=== PATIENT | female | born 1950 | race Two or more races ===

== ENCOUNTER 2017-08-20 13:01 | Inpatient (IN) | payer MEDICARE, OTHER ==
[~2017-08-20] VITALS: Ht 157.5 cm; Wt 61.2 kg
[~2017-08-20 13:01] MED LIST: BENAZEPRIL HCL10 MG PO; GLIPIZIDE5 MG PO; GLUCOPHAGE500 MG PO; GLUCOPHAGE850 MG ORAL; IBUPROFEN600 MG PO; LEVEMIR FL100 UNIT/1 SUBQ; LIPITOR20 MG ORAL; NKM; NORCO 5-325 TA1 EACH PO; ZOCOR20 MG PO
[2017-08-20] MEDS ORDERED: GABAPENTIN100 MG ORAL (13:13)
[2017-08-20] MEDS ORDERED: VENTOLIN HFA18 GM INH (13:13)
[2017-08-20 13:15] VITALS: BP 111/65
[2017-08-20] MEDS ORDERED: Aspirin Baby 81mg ORAL ONE (13:30)
[2017-08-20 13:54] LABS: BASOPHILS % (AUTO) 1.2 % (0.0-2.0); LYMPHOCYTES % (AUTO) 23.6 % (20.0-45.0); MEAN CORPUSCULAR HEMOGLOBIN 32.3 PG (27.0-31.0); MEAN CORPUSCULAR HGB CONC 34.9 G/DL (32.0-36.0); MEAN CORPUSCULAR VOLUME 93 FL (80-99); MEAN PLATELET VOLUME 6.5 FL (6.5-10.1); NEUTROPHILS % (AUTO) 66.2 % (45.0-75.0); PLATELET COUNT 234 K/UL (150-450); RED BLOOD COUNT 4.07 M/UL (4.20-5.40); RED CELL DISTRIBUTION WIDTH 12.2 % (11.6-14.8); WHITE BLOOD COUNT 8.3 K/UL (4.8-10.8)
[2017-08-20 13:59] LABS: PROTHROMBIN TIME 10.2 SEC (9.30-11.50)
[2017-08-20 14:21] LABS: ALANINE AMINOTRANSFERASE 18 U/L (12-78); ALBUMIN/GLOBULIN RATIO 0.9 (1.0-2.7); ANION GAP 8 mmol/L (5-15); ASPARTATE AMINO TRANSFERASE 12 U/L (15-37); CALCIUM 8.7 MG/DL (8.5-10.1); CARBON DIOXIDE 27 MMOL/L (21-32); CHLORIDE 107 MMOL/L (98-107); CKMB 0.8 NG/ML (0.0-3.6); CREATININE 0.6 MG/DL (0.55-1.30); GLOMERULAR FILTRATION RATE > 60 mL/min (>60); LIPASE 151 U/L (73-393); POTASSIUM 3.6 MMOL/L (3.5-5.1); SODIUM 142 MMOL/L (136-145); TOTAL PROTEIN 6.6 G/DL (6.4-8.2)
--- NOTE | 2017-08-20 14:21 | Diagnostic Imaging Report ---
Indication: Chest pain Technique: One view of the chest Comparison: 08/10/2015 Findings: Lungs and pleural spaces are clear. Heart size is normal. No significant interim change Impression: No acute process
[2017-08-20 14:29] LABS: KETONES,URINE NEGATIVE (NEGATIVE); LEUKOCYTE ESTERASE ,URINE 1+ (NEGATIVE); NITRITE,URINE NEGATIVE (NEGATIVE); PH,URINE 5 (4.5-8.0); PROTEIN,URINE NEGATIVE (NEGATIVE); UROBILINOGEN,URINE NORMAL MG/DL (0.0-1.0)
[2017-08-20 14:33] LABS: APPEARANCE,URINE SLIGHTLY CLOUDY
[2017-08-20 14:39] LABS: BACTERIA,URINE FEW /HPF; RBC,URINE 0-2 /HPF (0 - 2); SQUAMOUS EPITHELIAL CELL,UR FEW /LPF (NONE/OCC)
[2017-08-20] MEDS ORDERED: Ketorolac 30mg Inj IV PRN (14:45)
[2017-08-20] MEDS ORDERED: Nitroglycerin Subl 0.4mg tab SL PRN (14:45)
[2017-08-20] MEDS ORDERED: Miralax 17gm pkt ORAL PRN (14:45)
[2017-08-20] MEDS ORDERED: Albuterol/Ipratropium 3ml neb HHN PRN (14:45)
[2017-08-20] MEDS ORDERED: Enalaprilat 2.5mg/2ml Inj IV PRN (14:45)
[2017-08-20 16:09] VITALS: BP 142/75
[2017-08-20] MEDS ORDERED: Morphine Sulfate 2mg/ml Inj IVP ONE (16:30)
--- NOTE | 2017-08-20 16:45 | Emergency Room Report ---
History of Present Illness General Chief Complaint: Chest Pain Source: Patient Present Illness HPI The patient complains about feeling terrible. She states that her entire body hurts. She is also having chest pain. She feels generalized weakness. She denies cough or congestion. She denies abdominal pain. She denies dysuria or hematuria. She has no other complaints. Allergies: Coded Allergies: CODEINE (Unverified Allergy, Unknown, 07/07/14) Pt claims that she used to be allergic to Codeine, but she is now able to take it without any side effect or adverse reaction DIPHENHYDRAMINE (Unverified Allergy, Unknown, 07/07/14) Patient History Past Medical History: see triage record, HTN, other - breast ca, scoliosis, DJD Social History: Denies: smoking, alcohol use, drug use Reviewed Nursing Documentation: PMH: Agreed, PSxH: Agreed Nursing Documentation-PMH Hx Cardiac Problems: Yes Hx Hypertension: Yes - scoliosis Hx Asthma: Yes Hx Diabetes: Yes Hx Cancer: No - + family history Hx Gastrointestinal Problems: Yes Hx Neurological Problems: Yes Hx Peripheral Neuropathy: Yes Review of Systems All Other Systems: negative except mentioned in HPI Physical Exam Vital Signs Date Time Temp Pulse Resp B/P (MAP) Pulse Ox O2 Delivery O2 Flow Rate FiO2 08/20/17 13:05 98.2 76 20 150/66 96 Room Air Sp02 EP Interpretation: reviewed, normal General Appearance: no apparent distress, alert, GCS 15, non-toxic Head: normocephalic, atraumatic Eyes: bilateral eye normal inspection, bilateral eye PERRL ENT: hearing grossly normal, normal pharynx, no angioedema, normal voice Neck: full range of motion, supple/symm/no masses Respiratory: chest non-tender, lungs clear, normal breath sounds, speaking full sentences Cardiovascular #1: regular rate, rhythm, no edema Gastrointestinal: normal bowel sounds, non tender, soft, non-distended, no guarding, no rebound Rectal: deferred Genitourinary: normal inspection, no CVA tenderness Musculoskeletal: back normal, gait/station normal, normal range of motion, non- tender Neurologic: alert, oriented x3, responsive, motor strength/tone normal, sensory intact, speech normal Psychiatric: judgement/insight normal, memory normal, mood/affect normal, no suicidal/homicidal ideation Skin: normal color, no rash, warm/dry, well hydrated Medical Decision Making Diagnostic Impression: Primary Impression: Chest pain ER Course This patient presents with chest pain. She is high risk for acute coronary syndrome. Initial workup to include CBC, CMP and cardiac enzymes are negative. This patient will be admitted to rule out ACS and further cardiac monitoring and evaluation. Laboratory Tests Test 08/20/17 13:41 08/20/17 13:58 White Blood Count 8.3 K/UL (4.8-10.8) Red Blood Count 4.07 M/UL (4.20-5.40) L Hemoglobin 13.1 G/DL (12.0-16.0) Hematocrit 37.7 % (37.0-47.0) Mean Corpuscular Volume 93 FL (80-99) Mean Corpuscular Hemoglobin 32.3 PG (27.0-31.0) H Mean Corpuscular Hemoglobin Concent 34.9 G/DL (32.0-36.0) Red Cell Distribution Width 12.2 % (11.6-14.8) Platelet Count 234 K/UL (150-450) Mean Platelet Volume 6.5 FL (6.5-10.1) Neutrophils (%) (Auto) 66.2 % (45.0-75.0) Lymphocytes (%) (Auto) 23.6 % (20.0-45.0) Monocytes (%) (Auto) 6.0 % (1.0-10.0) Eosinophils (%) (Auto) 3.0 % (0.0-3.0) Basophils (%) (Auto) 1.2 % (0.0-2.0) Prothrombin Time 10.2 SEC (9.30-11.50) Prothrombin Time INR 1.0 (0.9-1.1) PTT 26 SEC (23-33) Sodium Level 142 MMOL/L (136-145) Potassium Level 3.6 MMOL/L (3.5-5.1) Chloride Level 107 MMOL/L (98-107) Carbon Dioxide Level 27 MMOL/L (21-32) Anion Gap 8 mmol/L (5-15) Blood Urea Nitrogen 9 mg/dL (7-18) Creatinine 0.6 MG/DL (0.55-1.30) Estimate Glomerular Filtration Rate > 60 mL/min (>60) Glucose Level 202 MG/DL (74-106) H Calcium Level 8.7 MG/DL (8.5-10.1) Total Bilirubin 0.5 MG/DL (0.2-1.0) Aspartate Amino Transferase (AST) 12 U/L (15-37) L Alanine Aminotransferase (ALT) 18 U/L (12-78) Alkaline Phosphatase 58 U/L (46-116) Total Creatine Kinase 46 U/L (26-308) Creatine Kinase MB 0.8 NG/ML (0.0-3.6) Creatine Kinase MB Relative Index 1.7 Troponin I 0.003 ng/mL (0.000-0.056) Total Protein 6.6 G/DL (6.4-8.2) Albumin 3.2 G/DL (3.4-5.0) L Globulin 3.4 g/dL Albumin/Globulin Ratio 0.9 (1.0-2.7) L Lipase 151 U/L (73-393) Urine Color Pale yellow Urine Appearance Slightly cloudy Urine pH 5 (4.5-8.0) Urine Specific [place] 1.015 (1.005-1.035) Urine Protein Negative (NEGATIVE) Urine Glucose (UA) 4+ (NEGATIVE) H Urine Ketones Negative (NEGATIVE) Urine Occult Blood 1+ (NEGATIVE) H Urine Nitrite Negative (NEGATIVE) Urine Bilirubin Negative (NEGATIVE) Urine Urobilinogen Normal MG/DL (0.0-1.0) Urine Leukocyte Esterase 1+ (NEGATIVE) H Urine RBC 0-2 /HPF (0 - 2) Urine WBC 2-4 /HPF (0 - 2) Urine Squamous Epithelial Cells Few /LPF (NONE/OCC) Urine Bacteria Few /HPF (NONE) Urine Opiates Screen Negative (NEGATIVE) Urine Barbiturates Screen Negative (NEGATIVE) Phencyclidine (PCP) Screen Negative (NEGATIVE) Urine Amphetamines Screen Negative (NEGATIVE) Urine Benzodiazepines Screen Negative (NEGATIVE) Urine Cocaine Screen Negative (NEGATIVE) Urine Marijuana (THC) Screen Negative (NEGATIVE) EKG Diagnostic Results Rate: normal ST Segments: no acute changes Rhythm Strip Diag. Results EP Interpretation: yes Rate: 70 Rhythm: NSR, no PVC's, no ectopy Chest X-Ray Diagnostic Results Chest X-Ray Diagnostic Results : Chest X-Ray Ordered: Yes # of Views/Limited/Complete: 1 View Indication: Chest Pain EP Interpretation: Yes Interpretation: no consolidation, no effusion, no pneumothorax, no acute cardiopulmonary disease Impression: No acute disease Electronically Signed by: Donnell Last Vital Signs Date Time Temp Pulse Resp B/P (MAP) Pulse Ox O2 Delivery O2 Flow Rate FiO2 08/20/17 16:09 98.2 73 16 142/75 100 Room Air Disposition: ADMITTED INPATIENT Condition: Serious Referrals: NOT CHOSEN IPA/,REFERRING (PCP) CESIA ROCHE D.O. Aug 20, 2017 16:45
[2017-08-20 18:22] VITALS: BP 138/72
[2017-08-20] MEDS ORDERED: dilTIAZem HCl 25mg/5ml Inj IV PRN (19:30)
--- NOTE | 2017-08-20 21:30 | History and Physical Report ---
DATE OF ADMISSION: 08/20/2017 TIME SEEN: 2 p.m. CONSULTANTS: 1. Kendrick Garner M.D. 2. Ayan Corona M.D. 3. Claudia Rodriguez M.D. CHIEF COMPLAINT: Chest pain, weakness, depression, anxiety. BRIEF HISTORY: The patient is a 67-year-old female who presents with two days of increasing shortness of breath and chest pain, substernal, no radiation, intermittent. The patient is slight dizzy and slightly shortness of breath, came to the ER, diagnosed with above, being admitted to telemetry for further care. Currently slightly anxious in bed, oriented x3, no acute distress. PAST MEDICAL HISTORY: Includes diabetes, hypertension, anxiety, depression, COPD, neuropathy. PAST SURGICAL HISTORY: Hernia and bilateral tubal ligation. MEDICATIONS: Aspirin, ALLERGIES: Codeine and diphenylamine. SOCIAL HISTORY: Positive smoking. No alcohol. No intravenous drug use. FAMILY HISTORY: Noncontributory. PHYSICAL EXAMINATION: GENERAL: Sightly anxious in bed, oriented x3, in no acute distress. VITAL SIGNS: Temperature 98 degrees, pulse 76, respirations 20, and blood pressure 150/66. CARDIOVASCULAR: No murmur. LUNGS: Distant and clear. ABDOMEN: Bowel sounds positive. Nontender and nondistended. EXTREMITIES: No cyanosis, clubbing, or edema. LABORATORY AND DIAGNOSTIC DATA: CBC is normal. BMP show glucose 202. Troponin 0.003. Albumin 3.2. INR 1.0, PTT 26. Urinalysis show 1+ leukocyte esterase. Urine toxicology is pending. ASSESSMENT: 1. Chest pain. 2. Diabetes. 3. Hypertension. 4. Anxiety. 5. Urinary tract infection. 6. Chronic obstructive pulmonary disease. 7. Neuropathy. 8. Depression. 9. Malnutrition. PLAN: 1. Continue premedications. 2. Troponin q. 8 h x3. 3. EKG in the morning. 4. Blood pressure, blood sugar, and pain control. 5. Dietary followup. 6. Antibiotics per Infectious Disease. 7. OT/PT. 8. Dietary evaluation. 9. CBC and BMP in the morning. 10. Resume home medications. 11. We will continue to follow this patient. Rob Saldana D.O. DR: Magdaleno JOB#: [id number] CC:
[2017-08-20] MEDS: NovoLOG Insulin Flexpen SUBQ SCH (21:59)
[2017-08-20] MEDS: Heparin 5000 units/ml inj SUBQ SCH (22:00)
--- NOTE | 2017-08-20 22:27 | Cardiology Progress Note ---
Assessment/Plan Assessment/Plan The patient was seen and examined, full consult note will be dictated. Objective Last 24 Hour Vital Signs Date Time Temp Pulse Resp B/P (MAP) Pulse Ox O2 Delivery O2 Flow Rate FiO2 08/20/17 19:57 98.1 74 15 138/72 99 Room Air 08/20/17 18:22 98.1 74 15 138/72 99 Room Air 08/20/17 17:03 98.2 08/20/17 16:09 98.2 73 16 142/75 100 Room Air 08/20/17 13:15 68 15 Room Air 08/20/17 13:15 98.2 68 15 111/65 100 Room Air 08/20/17 13:05 98.2 76 20 150/66 96 Room Air Laboratory Tests Test 08/20/17 13:41 08/20/17 13:58 White Blood Count 8.3 K/UL (4.8-10.8) Red Blood Count 4.07 M/UL (4.20-5.40) L Hemoglobin 13.1 G/DL (12.0-16.0) Hematocrit 37.7 % (37.0-47.0) Mean Corpuscular Volume 93 FL (80-99) Mean Corpuscular Hemoglobin 32.3 PG (27.0-31.0) H Mean Corpuscular Hemoglobin Concent 34.9 G/DL (32.0-36.0) Red Cell Distribution Width 12.2 % (11.6-14.8) Platelet Count 234 K/UL (150-450) Mean Platelet Volume 6.5 FL (6.5-10.1) Neutrophils (%) (Auto) 66.2 % (45.0-75.0) Lymphocytes (%) (Auto) 23.6 % (20.0-45.0) Monocytes (%) (Auto) 6.0 % (1.0-10.0) Eosinophils (%) (Auto) 3.0 % (0.0-3.0) Basophils (%) (Auto) 1.2 % (0.0-2.0) Prothrombin Time 10.2 SEC (9.30-11.50) Prothromb Time International Ratio 1.0 (0.9-1.1) Activated Partial Thromboplast Time 26 SEC (23-33) Sodium Level 142 MMOL/L (136-145) Potassium Level 3.6 MMOL/L (3.5-5.1) Chloride Level 107 MMOL/L (98-107) Carbon Dioxide Level 27 MMOL/L (21-32) Anion Gap 8 mmol/L (5-15) Blood Urea Nitrogen 9 mg/dL (7-18) Creatinine 0.6 MG/DL (0.55-1.30) Estimat Glomerular Filtration Rate > 60 mL/min (>60) Glucose Level 202 MG/DL (74-106) H Calcium Level 8.7 MG/DL (8.5-10.1) Total Bilirubin 0.5 MG/DL (0.2-1.0) Aspartate Amino Transf (AST/SGOT) 12 U/L (15-37) L Alanine Aminotransferase (ALT/SGPT) 18 U/L (12-78) Alkaline Phosphatase 58 U/L (46-116) Total Creatine Kinase 46 U/L (26-308) Creatine Kinase MB 0.8 NG/ML (0.0-3.6) Creatine Kinase MB Relative Index 1.7 Troponin I 0.003 ng/mL (0.000-0.056) Total Protein 6.6 G/DL (6.4-8.2) Albumin 3.2 G/DL (3.4-5.0) L Globulin 3.4 g/dL Albumin/Globulin Ratio 0.9 (1.0-2.7) L Lipase 151 U/L (73-393) Urine Color Pale yellow Urine Appearance Slightly cloudy Urine pH 5 (4.5-8.0) Urine Specific [place] 1.015 (1.005-1.035) Urine Protein Negative (NEGATIVE) Urine Glucose (UA) 4+ (NEGATIVE) H Urine Ketones Negative (NEGATIVE) Urine Occult Blood 1+ (NEGATIVE) H Urine Nitrite Negative (NEGATIVE) Urine Bilirubin Negative (NEGATIVE) Urine Urobilinogen Normal MG/DL (0.0-1.0) Urine Leukocyte Esterase 1+ (NEGATIVE) H Urine RBC 0-2 /HPF (0 - 2) Urine WBC 2-4 /HPF (0 - 2) Urine Squamous Epithelial Cells Few /LPF (NONE/OCC) Urine Bacteria Few /HPF (NONE) Urine Opiates Screen Negative (NEGATIVE) Urine Barbiturates Screen Negative (NEGATIVE) Phencyclidine (PCP) Screen Negative (NEGATIVE) Urine Amphetamines Screen Negative (NEGATIVE) Urine Benzodiazepines Screen Negative (NEGATIVE) Urine Cocaine Screen Negative (NEGATIVE) Urine Marijuana (THC) Screen Negative (NEGATIVE) HAYES JUNE Aug 20, 2017 22:27
--- NOTE | 2017-08-20 23:00 | Infectious Diseases Prog Note ---
Assessment/Plan Problems: (1) Pyuria Assessment & Plan: Rule-out UTI. Empiric cefepime. (2) Hypertension (3) Chest pain (4) Chronic pain Subjective Allergies: Coded Allergies: CODEINE (Unverified Allergy, Unknown, 07/07/14) Pt claims that she used to be allergic to Codeine, but she is now able to take it without any side effect or adverse reaction DIPHENHYDRAMINE (Unverified Allergy, Unknown, 07/07/14) Objective Vital Signs Last 24 Hour Vital Signs Date Time Temp Pulse Resp B/P (MAP) Pulse Ox O2 Delivery O2 Flow Rate FiO2 08/20/17 19:57 98.1 74 15 138/72 99 Room Air 08/20/17 18:22 98.1 74 15 138/72 99 Room Air 08/20/17 17:03 98.2 08/20/17 16:09 98.2 73 16 142/75 100 Room Air 08/20/17 13:15 68 15 Room Air 08/20/17 13:15 98.2 68 15 111/65 100 Room Air 08/20/17 13:05 98.2 76 20 150/66 96 Room Air Height (Feet): 5 Height (Inches): 2.00 Weight (Pounds): 135 Laboratory Tests Test 08/20/17 13:41 08/20/17 13:58 White Blood Count 8.3 K/UL (4.8-10.8) Red Blood Count 4.07 M/UL (4.20-5.40) L Hemoglobin 13.1 G/DL (12.0-16.0) Hematocrit 37.7 % (37.0-47.0) Mean Corpuscular Volume 93 FL (80-99) Mean Corpuscular Hemoglobin 32.3 PG (27.0-31.0) H Mean Corpuscular Hemoglobin Concent 34.9 G/DL (32.0-36.0) Red Cell Distribution Width 12.2 % (11.6-14.8) Platelet Count 234 K/UL (150-450) Mean Platelet Volume 6.5 FL (6.5-10.1) Neutrophils (%) (Auto) 66.2 % (45.0-75.0) Lymphocytes (%) (Auto) 23.6 % (20.0-45.0) Monocytes (%) (Auto) 6.0 % (1.0-10.0) Eosinophils (%) (Auto) 3.0 % (0.0-3.0) Basophils (%) (Auto) 1.2 % (0.0-2.0) Prothrombin Time 10.2 SEC (9.30-11.50) Prothromb Time International Ratio 1.0 (0.9-1.1) Activated Partial Thromboplast Time 26 SEC (23-33) Sodium Level 142 MMOL/L (136-145) Potassium Level 3.6 MMOL/L (3.5-5.1) Chloride Level 107 MMOL/L (98-107) Carbon Dioxide Level 27 MMOL/L (21-32) Anion Gap 8 mmol/L (5-15) Blood Urea Nitrogen 9 mg/dL (7-18) Creatinine 0.6 MG/DL (0.55-1.30) Estimat Glomerular Filtration Rate > 60 mL/min (>60) Glucose Level 202 MG/DL (74-106) H Calcium Level 8.7 MG/DL (8.5-10.1) Total Bilirubin 0.5 MG/DL (0.2-1.0) Aspartate Amino Transf (AST/SGOT) 12 U/L (15-37) L Alanine Aminotransferase (ALT/SGPT) 18 U/L (12-78) Alkaline Phosphatase 58 U/L (46-116) Total Creatine Kinase 46 U/L (26-308) Creatine Kinase MB 0.8 NG/ML (0.0-3.6) Creatine Kinase MB Relative Index 1.7 Troponin I 0.003 ng/mL (0.000-0.056) Total Protein 6.6 G/DL (6.4-8.2) Albumin 3.2 G/DL (3.4-5.0) L Globulin 3.4 g/dL Albumin/Globulin Ratio 0.9 (1.0-2.7) L Lipase 151 U/L (73-393) Urine Color Pale yellow Urine Appearance Slightly cloudy Urine pH 5 (4.5-8.0) Urine Specific [place] 1.015 (1.005-1.035) Urine Protein Negative (NEGATIVE) Urine Glucose (UA) 4+ (NEGATIVE) H Urine Ketones Negative (NEGATIVE) Urine Occult Blood 1+ (NEGATIVE) H Urine Nitrite Negative (NEGATIVE) Urine Bilirubin Negative (NEGATIVE) Urine Urobilinogen Normal MG/DL (0.0-1.0) Urine Leukocyte Esterase 1+ (NEGATIVE) H Urine RBC 0-2 /HPF (0 - 2) Urine WBC 2-4 /HPF (0 - 2) Urine Squamous Epithelial Cells Few /LPF (NONE/OCC) Urine Bacteria Few /HPF (NONE) Urine Opiates Screen Negative (NEGATIVE) Urine Barbiturates Screen Negative (NEGATIVE) Phencyclidine (PCP) Screen Negative (NEGATIVE) Urine Amphetamines Screen Negative (NEGATIVE) Urine Benzodiazepines Screen Negative (NEGATIVE) Urine Cocaine Screen Negative (NEGATIVE) Urine Marijuana (THC) Screen Negative (NEGATIVE) Current Medications Medications (Trade) Dose Ordered Sig/Joyce Route PRN Reason Start Time Stop Time Status Last Admin Dose Admin Acetaminophen (Tylenol) 650 mg Q4H PRN ORAL FEVER 08/20/17 14:45 09/19/17 14:44 Albuterol/ Ipratropium (DuoNeb 0.5-3(2.5)mg/3ml) 3 ml Q4H PRN HHN Shortness of Breath 08/20/17 14:45 08/25/17 14:44 Aspirin (ASA) 162 mg DAILY ORAL 08/21/17 09:00 09/20/17 08:59 Benazepril HCl (Lotensin) 10 mg DAILY ORAL 08/21/17 09:00 09/20/17 08:59 Dextrose (Dextrose 50%) STAT PRN IV Hypoglycemia 08/20/17 14:45 09/19/17 14:44 Diltiazem HCl (Cardizem) 10 mg Q1H PRN IV HR > 120 08/20/17 19:30 09/19/17 19:29 Enalaprilat (Vasotec) 2.5 mg Q6H PRN IV sbp more than 160 08/20/17 14:45 09/19/17 14:44 Gabapentin (Neurontin) 100 mg THREE TIMES A DAY ORAL 08/20/17 21:00 09/19/17 20:59 08/20/17 21:54 Heparin Sodium (Porcine) (Heparin 5000 units/ml) 5,000 units EVERY 8 HOURS SUBQ 08/20/17 22:00 09/19/17 21:59 Insulin Aspart (NovoLOG) BEFORE MEALS AND HS SUBQ 08/20/17 21:00 09/19/17 20:59 08/20/17 21:59 Morphine Sulfate (Morphine Sulfate) 2 mg Q4H PRN IVP severe Pain (Pain Scale 7-10) 08/20/17 14:45 08/27/17 14:44 Nitroglycerin (Ntg) 0.4 mg Every 5 Minutes PRN SL Prn Chest Pain 08/20/17 14:45 09/19/17 14:44 Ondansetron HCl (Zofran) 4 mg Q6H PRN IVP Nausea & Vomiting 08/20/17 14:45 09/19/17 14:44 Pantoprazole (Protonix) 40 mg DAILY ORAL 08/21/17 09:00 09/20/17 08:59 Polyethylene Glycol (Miralax) 17 gm DAILYPRN PRN ORAL Constipation 08/20/17 14:45 09/19/17 14:44 Temazepam (Restoril) 15 mg HSPRN PRN ORAL Insomnia 08/20/17 14:45 08/27/17 14:44 08/20/17 21:55 SINDHU ROSARIO Aug 20, 2017 23:00
--- NOTE | 2017-08-20 23:15 | Consultation ---
History of Present Illness General Date patient seen: Aug 20, 2017 Chief Complaint: Chest Pain Present Illness HPI 67 year old female with hx of DM, presented to ER with cc of complains entire body hurts including chest pain. She feels generalized weakness. She denies cough or congestion. She denies abdominal pain. She denies dysuria or hematuria. She has no other complaints. She is being admitted to telemetry for ACS. Allergies: Coded Allergies: CODEINE (Unverified Allergy, Unknown, 07/07/14) Pt claims that she used to be allergic to Codeine, but she is now able to take it without any side effect or adverse reaction DIPHENHYDRAMINE (Unverified Allergy, Unknown, 07/07/14) Medication History Scheduled Albuterol Sulfate (Ventolin Hfa), Unknown Dose INH EVERY 6 HOURS, (Reported) Atorvastatin Calcium* (Lipitor*), 40 MG ORAL BEDTIME Benazepril Hcl* (Benazepril Hcl*), 10 MG PO DAILY, (Reported) Gabapentin* (Gabapentin*), Unknown Dose ORAL THREE TIMES A DAY, (Reported) Hydrocodone Bit/Acetaminophen 5-325* ([place] 5-325*), 1 TAB PO Q6H Hydrocodone Bit/Acetaminophen 5-325* ([place] 5-325*), 1 TAB PO Q6H Ibuprofen* (Motrin*), 600 MG PO TID Insulin Detemir (Levemir Flexpen), 33 UNITS SUBQ DAILY Insulin Detemir (Levemir Flexpen), 20 UNITS SUBQ QHS Metformin Hcl* (Glucophage*), 850 MG ORAL TIAC Patient History Healthcare decision maker Resuscitation status Advanced Directive on File Past Medical/Surgical History Past Medical/Surgical History: (1) Chronic pain (2) Hypertension (3) DM (diabetes mellitus) (4) Scoliosis (5) Depression (6) COPD (chronic obstructive pulmonary disease) Review of Systems All Other Systems: negative except mentioned in HPI Physical Exam General Appearance: WD/WN Lines, tubes and drains: central line HEENT: normocephalic, atraumatic Neck: non-tender, supple Respiratory/Chest: decreased breath sounds Cardiovascular/Chest: normal peripheral pulses, normal rate, regular rhythm Abdomen: hyperactive bowel sounds Last 24 Hour Vital Signs Date Time Temp Pulse Resp B/P (MAP) Pulse Ox O2 Delivery O2 Flow Rate FiO2 08/20/17 19:57 98.1 74 15 138/72 99 Room Air 08/20/17 18:22 98.1 74 15 138/72 99 Room Air 08/20/17 17:03 98.2 08/20/17 16:09 98.2 73 16 142/75 100 Room Air 08/20/17 13:15 68 15 Room Air 08/20/17 13:15 98.2 68 15 111/65 100 Room Air 08/20/17 13:05 98.2 76 20 150/66 96 Room Air Laboratory Tests Test 08/20/17 13:41 08/20/17 13:58 White Blood Count 8.3 K/UL (4.8-10.8) Red Blood Count 4.07 M/UL (4.20-5.40) L Hemoglobin 13.1 G/DL (12.0-16.0) Hematocrit 37.7 % (37.0-47.0) Mean Corpuscular Volume 93 FL (80-99) Mean Corpuscular Hemoglobin 32.3 PG (27.0-31.0) H Mean Corpuscular Hemoglobin Concent 34.9 G/DL (32.0-36.0) Red Cell Distribution Width 12.2 % (11.6-14.8) Platelet Count 234 K/UL (150-450) Mean Platelet Volume 6.5 FL (6.5-10.1) Neutrophils (%) (Auto) 66.2 % (45.0-75.0) Lymphocytes (%) (Auto) 23.6 % (20.0-45.0) Monocytes (%) (Auto) 6.0 % (1.0-10.0) Eosinophils (%) (Auto) 3.0 % (0.0-3.0) Basophils (%) (Auto) 1.2 % (0.0-2.0) Prothrombin Time 10.2 SEC (9.30-11.50) Prothromb Time International Ratio 1.0 (0.9-1.1) Activated Partial Thromboplast Time 26 SEC (23-33) Sodium Level 142 MMOL/L (136-145) Potassium Level 3.6 MMOL/L (3.5-5.1) Chloride Level 107 MMOL/L (98-107) Carbon Dioxide Level 27 MMOL/L (21-32) Anion Gap 8 mmol/L (5-15) Blood Urea Nitrogen 9 mg/dL (7-18) Creatinine 0.6 MG/DL (0.55-1.30) Estimat Glomerular Filtration Rate > 60 mL/min (>60) Glucose Level 202 MG/DL (74-106) H Calcium Level 8.7 MG/DL (8.5-10.1) Total Bilirubin 0.5 MG/DL (0.2-1.0) Aspartate Amino Transf (AST/SGOT) 12 U/L (15-37) L Alanine Aminotransferase (ALT/SGPT) 18 U/L (12-78) Alkaline Phosphatase 58 U/L (46-116) Total Creatine Kinase 46 U/L (26-308) Creatine Kinase MB 0.8 NG/ML (0.0-3.6) Creatine Kinase MB Relative Index 1.7 Troponin I 0.003 ng/mL (0.000-0.056) Total Protein 6.6 G/DL (6.4-8.2) Albumin 3.2 G/DL (3.4-5.0) L Globulin 3.4 g/dL Albumin/Globulin Ratio 0.9 (1.0-2.7) L Lipase 151 U/L (73-393) Urine Color Pale yellow Urine Appearance Slightly cloudy Urine pH 5 (4.5-8.0) Urine Specific [place] 1.015 (1.005-1.035) Urine Protein Negative (NEGATIVE) Urine Glucose (UA) 4+ (NEGATIVE) H Urine Ketones Negative (NEGATIVE) Urine Occult Blood 1+ (NEGATIVE) H Urine Nitrite Negative (NEGATIVE) Urine Bilirubin Negative (NEGATIVE) Urine Urobilinogen Normal MG/DL (0.0-1.0) Urine Leukocyte Esterase 1+ (NEGATIVE) H Urine RBC 0-2 /HPF (0 - 2) Urine WBC 2-4 /HPF (0 - 2) Urine Squamous Epithelial Cells Few /LPF (NONE/OCC) Urine Bacteria Few /HPF (NONE) Urine Opiates Screen Negative (NEGATIVE) Urine Barbiturates Screen Negative (NEGATIVE) Phencyclidine (PCP) Screen Negative (NEGATIVE) Urine Amphetamines Screen Negative (NEGATIVE) Urine Benzodiazepines Screen Negative (NEGATIVE) Urine Cocaine Screen Negative (NEGATIVE) Urine Marijuana (THC) Screen Negative (NEGATIVE) Height (Feet): 5 Height (Inches): 2.00 Weight (Pounds): 135 Medications Current Medications Medications (Trade) Dose Ordered Sig/Joyce Route PRN Reason Start Time Stop Time Status Last Admin Dose Admin Acetaminophen (Tylenol) 650 mg Q4H PRN ORAL FEVER 08/20/17 14:45 09/19/17 14:44 Albuterol/ Ipratropium (DuoNeb 0.5-3(2.5)mg/3ml) 3 ml Q4H PRN HHN Shortness of Breath 08/20/17 14:45 08/25/17 14:44 Aspirin (ASA) 162 mg DAILY ORAL 08/21/17 09:00 09/20/17 08:59 Benazepril HCl (Lotensin) 10 mg DAILY ORAL 08/21/17 09:00 09/20/17 08:59 Cefepime HCl 2 gm/ Dextrose 110 ml @ 220 mls/hr Q24H IVPB 08/20/17 23:00 08/27/17 22:59 UNV Dextrose (Dextrose 50%) STAT PRN IV Hypoglycemia 08/20/17 14:45 09/19/17 14:44 Diltiazem HCl (Cardizem) 10 mg Q1H PRN IV HR > 120 08/20/17 19:30 09/19/17 19:29 Enalaprilat (Vasotec) 2.5 mg Q6H PRN IV sbp more than 160 08/20/17 14:45 09/19/17 14:44 Gabapentin (Neurontin) 100 mg THREE TIMES A DAY ORAL 08/20/17 21:00 09/19/17 20:59 08/20/17 21:54 Heparin Sodium (Porcine) (Heparin 5000 units/ml) 5,000 units EVERY 8 HOURS SUBQ 08/20/17 22:00 09/19/17 21:59 Insulin Aspart (NovoLOG) BEFORE MEALS AND HS SUBQ 08/20/17 21:00 09/19/17 20:59 08/20/17 21:59 Morphine Sulfate (Morphine Sulfate) 2 mg Q4H PRN IVP severe Pain (Pain Scale 7-10) 08/20/17 14:45 08/27/17 14:44 Nitroglycerin (Ntg) 0.4 mg Every 5 Minutes PRN SL Prn Chest Pain 08/20/17 14:45 09/19/17 14:44 Ondansetron HCl (Zofran) 4 mg Q6H PRN IVP Nausea & Vomiting 08/20/17 14:45 09/19/17 14:44 Pantoprazole (Protonix) 40 mg DAILY ORAL 08/21/17 09:00 09/20/17 08:59 Polyethylene Glycol (Miralax) 17 gm DAILYPRN PRN ORAL Constipation 08/20/17 14:45 09/19/17 14:44 Temazepam (Restoril) 15 mg HSPRN PRN ORAL Insomnia 08/20/17 14:45 08/27/17 14:44 08/20/17 21:55 Assessment/Plan Problem List: (1) ACS (acute coronary syndrome) ICD Codes: I24.9 - Acute ischemic heart disease, unspecified SNOMED: 947486573 (2) COPD (chronic obstructive pulmonary disease) ICD Codes: J44.9 - COPD (chronic obstructive pulmonary disease) SNOMED: 03935161 (3) Anxiety ICD Codes: F41.9 - Anxiety disorder, unspecified SNOMED: 28931392 (4) DM (diabetes mellitus) ICD Codes: E11.9 - Diabetes mellitus SNOMED: 65057212 (5) Depression ICD Codes: F32.9 - Major depressive disorder, single episode, unspecified SNOMED: 16842158 (6) Scoliosis ICD Codes: M41.9 - Scoliosis SNOMED: 201385743 Assessment/Plan serial ekg, troponin, echo respiratory treatment cardio to see sliding scale insuline coverage. OSIRIS COLUNGA Aug 20, 2017 23:15
[2017-08-21] VITALS: BP 150/79
[2017-08-21] MEDS ORDERED: Cefepime 2gm ONE (01:37)
[2017-08-21] MEDS: Cefepime HCl 2 GM in D5W 110 ML IVPB SCH (01:54)
[2017-08-21] MEDS: Heparin 5000 units/ml inj SUBQ SCH ×3 (06:00→22:00)
[2017-08-21] MEDS: NovoLOG Insulin Flexpen SUBQ SCH ×4 (07:17→21:00)
[2017-08-21 08:00] VITALS: BP 137/75
[2017-08-21 08:06] LABS: BASOPHILS % (AUTO) 1.3 % (0.0-2.0); MEAN CORPUSCULAR HGB CONC 34.6 G/DL (32.0-36.0); MEAN CORPUSCULAR VOLUME 93 FL (80-99); MEAN PLATELET VOLUME 6.6 FL (6.5-10.1); MONOCYTES % (AUTO) 8.8 % (1.0-10.0); NEUTROPHILS % (AUTO) 53.9 % (45.0-75.0); PLATELET COUNT 232 K/UL (150-450); RED BLOOD COUNT 4.27 M/UL (4.20-5.40); RED CELL DISTRIBUTION WIDTH 12.3 % (11.6-14.8)
[2017-08-21 08:19] LABS: PROTHROMBIN TIME 10.4 SEC (9.30-11.50)
[2017-08-21] MEDS: Benazepril 10mg tab ORAL SCH (08:35)
[2017-08-21] MEDS: Aspirin Baby 81mg ORAL SCH (08:36)
[2017-08-21 08:48] LABS: ANION GAP 9 mmol/L (5-15); CALCIUM 8.8 MG/DL (8.5-10.1); CARBON DIOXIDE 27 MMOL/L (21-32); CHLORIDE 109 MMOL/L (98-107); CHOLESTEROL 222 MG/DL (< 200); CREATININE 0.6 MG/DL (0.55-1.30); GLOMERULAR FILTRATION RATE > 60 mL/min (>60); POTASSIUM 3.5 MMOL/L (3.5-5.1); SODIUM 145 MMOL/L (136-145); THYROID STIMULATING HORMONE 1.859 uiU/mL (0.360-3.740)
[2017-08-21 12:00] VITALS: BP 124/64
--- NOTE | 2017-08-21 13:20 | Pulmonology Progress Note ---
Assessment/Plan Problems: (1) ACS (acute coronary syndrome) (2) COPD (chronic obstructive pulmonary disease) (3) Anxiety (4) DM (diabetes mellitus) (5) Depression (6) Scoliosis Assessment/Plan check echo awaiting cardio evaluation pain management sliding scale symptoamtic treatment all meds and notes reviewed. Subjective ROS Limited/Unobtainable: No Interval Events: feeling better, no new complains Allergies: Coded Allergies: CODEINE (Unverified Allergy, Unknown, 07/07/14) Pt claims that she used to be allergic to Codeine, but she is now able to take it without any side effect or adverse reaction DIPHENHYDRAMINE (Unverified Allergy, Unknown, 07/07/14) Objective Last 24 Hour Vital Signs Date Time Temp Pulse Resp B/P (MAP) Pulse Ox O2 Delivery O2 Flow Rate FiO2 08/21/17 12:00 97.6 72 20 124/64 99 Room Air 08/21/17 09:44 72 18 Room Air 08/21/17 08:35 137/75 08/21/17 08:00 97.2 70 21 137/75 98 Room Air 08/21/17 04:00 73 08/21/17 00:00 70 08/21/17 00:00 97.3 71 16 150/79 97 Room Air 08/20/17 20:00 76 08/20/17 19:57 98.1 74 15 138/72 99 Room Air 08/20/17 19:45 69 16 Room Air 08/20/17 18:22 98.1 74 15 138/72 99 Room Air 08/20/17 17:03 98.2 08/20/17 16:09 98.2 73 16 142/75 100 Room Air General Appearance: WD/WN HEENT: normocephalic, atraumatic Respiratory/Chest: chest wall non-tender, lungs clear Breasts: no masses Cardiovascular: normal peripheral pulses Abdomen: normal bowel sounds, soft, non tender Genitourinary: normal external genitalia Extremities: no cyanosis, no clubbing Skin: no lesions Laboratory Tests 08/20/17 13:41: White Blood Count 8.3, Red Blood Count 4.07L, Hemoglobin 13.1, Hematocrit 37.7, Mean Corpuscular Volume 93, Mean Corpuscular Hemoglobin 32.3H, Mean Corpuscular Hemoglobin Concent 34.9, Red Cell Distribution Width 12.2, Platelet Count 234, Mean Platelet Volume 6.5, Neutrophils (%) (Auto) 66.2, Lymphocytes (%) (Auto) 23.6, Monocytes (%) (Auto) 6.0, Eosinophils (%) (Auto) 3.0, Basophils (%) (Auto ) 1.2, Prothrombin Time 10.2, Prothromb Time International Ratio 1.0, Activated Partial Thromboplast Time 26, Sodium Level 142, Potassium Level 3.6, Chloride Level 107, Carbon Dioxide Level 27, Anion Gap 8, Blood Urea Nitrogen 9, Creatinine 0.6, Estimat Glomerular Filtration Rate > 60, Glucose Level 202H, Calcium Level 8.7, Total Bilirubin 0.5, Aspartate Amino Transf (AST/SGOT) 12L, Alanine Aminotransferase (ALT/SGPT) 18, Alkaline Phosphatase 58, Total Creatine Kinase 46, Creatine Kinase MB 0.8, Creatine Kinase MB Relative Index 1.7, Troponin I 0.003, Total Protein 6.6, Albumin 3.2L, Globulin 3.4, Albumin/ Globulin Ratio 0.9L, Lipase 151 08/20/17 13:58: Urine Color Pale yellow, Urine Appearance Slightly cloudy, Urine pH 5, Urine Specific [place] 1.015, Urine Protein Negative, Urine Glucose (UA) 4+H, Urine Ketones Negative, Urine Occult Blood 1+H, Urine Nitrite Negative, Urine Bilirubin Negative, Urine Urobilinogen Normal, Urine Leukocyte Esterase 1+H, Urine RBC 0-2, Urine WBC 2-4, Urine Squamous Epithelial Cells Few, Urine Bacteria Few, Urine Opiates Screen Negative, Urine Barbiturates Screen Negative , Phencyclidine (PCP) Screen Negative, Urine Amphetamines Screen Negative, Urine Benzodiazepines Screen Negative, Urine Cocaine Screen Negative, Urine Marijuana (THC) Screen Negative 08/21/17 07:20: White Blood Count 8.0, Red Blood Count 4.27, Hemoglobin 13.7, Hematocrit 39.5, Mean Corpuscular Volume 93, Mean Corpuscular Hemoglobin 32.0H, Mean Corpuscular Hemoglobin Concent 34.6, Red Cell Distribution Width 12.3, Platelet Count 232, Mean Platelet Volume 6.6, Neutrophils (%) (Auto) 53.9, Lymphocytes (%) (Auto) 32.0, Monocytes (%) (Auto) 8.8, Eosinophils (%) (Auto) 4.0H, Basophils (%) (Auto ) 1.3, Prothrombin Time 10.4, Prothromb Time International Ratio 1.0, Activated Partial Thromboplast Time 27, Sodium Level 145, Potassium Level 3.5, Chloride Level 109H, Carbon Dioxide Level 27, Anion Gap 9, Blood Urea Nitrogen 10, Creatinine 0.6, Estimat Glomerular Filtration Rate > 60, Glucose Level 118H, Calcium Level 8.8, Troponin I 0.005, C-Reactive Protein, Quantitative < 0.4, Triglycerides Level 187, Cholesterol Level 222H, LDL Cholesterol 160H, HDL Cholesterol 44, Cholesterol/HDL Ratio 5.0H, Thyroid Stimulating Hormone (TSH) 1.859 Current Medications Medications (Trade) Dose Ordered Sig/Joyce Route PRN Reason Start Time Stop Time Status Last Admin Dose Admin Acetaminophen (Tylenol) 650 mg Q4H PRN ORAL FEVER 08/20/17 14:45 09/19/17 14:44 08/21/17 12:45 Albuterol/ Ipratropium (DuoNeb 0.5-3(2.5)mg/3ml) 3 ml Q4H PRN HHN Shortness of Breath 08/20/17 14:45 08/25/17 14:44 Aspirin (ASA) 162 mg DAILY ORAL 08/21/17 09:00 09/20/17 08:59 08/21/17 08:36 Benazepril HCl (Lotensin) 10 mg DAILY ORAL 08/21/17 09:00 09/20/17 08:59 08/21/17 08:35 Cefepime HCl 2 gm/ Dextrose 110 ml @ 220 mls/hr Q24H IVPB 08/21/17 01:00 08/28/17 00:59 08/21/17 01:54 Dextrose (Dextrose 50%) STAT PRN IV Hypoglycemia 08/20/17 14:45 09/19/17 14:44 Diltiazem HCl (Cardizem) 10 mg Q1H PRN IV HR > 120 08/20/17 19:30 09/19/17 19:29 Enalaprilat (Vasotec) 2.5 mg Q6H PRN IV sbp more than 160 08/20/17 14:45 09/19/17 14:44 Gabapentin (Neurontin) 100 mg THREE TIMES A DAY ORAL 08/20/17 21:00 09/19/17 20:59 08/21/17 12:42 Heparin Sodium (Porcine) (Heparin 5000 units/ml) 5,000 units EVERY 8 HOURS SUBQ 08/20/17 22:00 09/19/17 21:59 Insulin Aspart (NovoLOG) BEFORE MEALS AND HS SUBQ 08/20/17 21:00 09/19/17 20:59 08/21/17 07:17 Morphine Sulfate (Morphine Sulfate) 2 mg Q4H PRN IVP severe Pain (Pain Scale 7-10) 08/20/17 14:45 08/27/17 14:44 Nitroglycerin (Ntg) 0.4 mg Every 5 Minutes PRN SL Prn Chest Pain 08/20/17 14:45 09/19/17 14:44 Ondansetron HCl (Zofran) 4 mg Q6H PRN IVP Nausea & Vomiting 08/20/17 14:45 09/19/17 14:44 Pantoprazole (Protonix) 40 mg DAILY ORAL 08/21/17 09:00 09/20/17 08:59 08/21/17 08:36 Polyethylene Glycol (Miralax) 17 gm DAILYPRN PRN ORAL Constipation 08/20/17 14:45 09/19/17 14:44 Temazepam (Restoril) 15 mg HSPRN PRN ORAL Insomnia 08/20/17 14:45 08/27/17 14:44 08/20/17 21:55 OSIRIS COLUNGA Aug 21, 2017 13:20
--- NOTE | 2017-08-21 15:18 | General Progress Note ---
Assessment/Plan Problem List: (1) Dyspnea ICD Codes: R06.00 - Dyspnea SNOMED: 485460171 (2) Lumbar radiculopathy ICD Codes: M54.16 - Lumbar radiculopathy SNOMED: 219216128 (3) Acute coronary syndrome ICD Codes: I24.9 - Acute coronary syndrome SNOMED: 666079611 (4) Diabetic neuropathy ICD Codes: E11.40 - Type 2 diabetes mellitus with diabetic neuropathy, unspecified SNOMED: 937380926, 706408245 (5) Chest pain ICD Codes: R07.9 - Chest pain, unspecified SNOMED: 48496227 (6) Hypertension ICD Codes: I10 - Essential (primary) hypertension SNOMED: 02093355 (7) Chronic pain ICD Codes: G89.29 - Other chronic pain SNOMED: 70652254 (8) COPD (chronic obstructive pulmonary disease) ICD Codes: J44.9 - COPD (chronic obstructive pulmonary disease) SNOMED: 05891565 (9) Depression ICD Codes: F32.9 - Major depressive disorder, single episode, unspecified SNOMED: 59204266 (10) DM (diabetes mellitus) ICD Codes: E11.9 - Diabetes mellitus SNOMED: 31308027 (11) Anxiety ICD Codes: F41.9 - Anxiety disorder, unspecified SNOMED: 71443969 Status: stable, progressing, tolerating diet Assessment/Plan ot pt diet abx cardio f/u pain control cbc bmp am Subjective Constitutional: Reports: weakness Allergies: Coded Allergies: CODEINE (Unverified Allergy, Unknown, 07/07/14) Pt claims that she used to be allergic to Codeine, but she is now able to take it without any side effect or adverse reaction DIPHENHYDRAMINE (Unverified Allergy, Unknown, 07/07/14) All Systems: reviewed and negative except above Subjective sleepy in bed Objective Last 24 Hour Vital Signs Date Time Temp Pulse Resp B/P (MAP) Pulse Ox O2 Delivery O2 Flow Rate FiO2 08/21/17 12:00 97.6 72 20 124/64 99 Room Air 08/21/17 09:44 72 18 Room Air 08/21/17 08:35 137/75 08/21/17 08:00 97.2 70 21 137/75 98 Room Air 08/21/17 04:00 73 08/21/17 00:00 70 08/21/17 00:00 97.3 71 16 150/79 97 Room Air 08/20/17 20:00 76 08/20/17 19:57 98.1 74 15 138/72 99 Room Air 08/20/17 19:45 69 16 Room Air 08/20/17 18:22 98.1 74 15 138/72 99 Room Air 08/20/17 17:03 98.2 08/20/17 16:09 98.2 73 16 142/75 100 Room Air Laboratory Tests 08/21/17 07:20: White Blood Count 8.0, Red Blood Count 4.27, Hemoglobin 13.7, Hematocrit 39.5, Mean Corpuscular Volume 93, Mean Corpuscular Hemoglobin 32.0H, Mean Corpuscular Hemoglobin Concent 34.6, Red Cell Distribution Width 12.3, Platelet Count 232, Mean Platelet Volume 6.6, Neutrophils (%) (Auto) 53.9, Lymphocytes (%) (Auto) 32.0, Monocytes (%) (Auto) 8.8, Eosinophils (%) (Auto) 4.0H, Basophils (%) (Auto ) 1.3, Prothrombin Time 10.4, Prothromb Time International Ratio 1.0, Activated Partial Thromboplast Time 27, Sodium Level 145, Potassium Level 3.5, Chloride Level 109H, Carbon Dioxide Level 27, Anion Gap 9, Blood Urea Nitrogen 10, Creatinine 0.6, Estimat Glomerular Filtration Rate > 60, Glucose Level 118H, Calcium Level 8.8, Troponin I 0.005, C-Reactive Protein, Quantitative < 0.4, Triglycerides Level 187, Cholesterol Level 222H, LDL Cholesterol 160H, HDL Cholesterol 44, Cholesterol/HDL Ratio 5.0H, Thyroid Stimulating Hormone (TSH) 1.859 Height (Feet): 5 Height (Inches): 2.00 Weight (Pounds): 135 General Appearance: lethargic EENT: normal ENT inspection Neck: normal alignment Cardiovascular: normal peripheral pulses, normal rate, regular rhythm Respiratory/Chest: chest wall non-tender, lungs clear, normal breath sounds Abdomen: normal bowel sounds, non tender, soft Extremities: normal inspection Edema: no edema noted Arm (L), no edema noted Arm (R), no edema noted Leg (L), no edema noted Leg (R), no edema noted Pedal (L), no edema noted Pedal (R), no edema noted Generalized Neurologic: responsive, motor weakness Skin: normal pigmentation, warm/dry DONNA FLORENTINO Aug 21, 2017 15:18
[2017-08-21 16:00] VITALS: BP 132/76
[2017-08-21 20:51] VITALS: BP 127/67
[2017-08-21] MEDS: Morphine Sulfate 2mg/ml Inj IVP PRN (21:32)
--- NOTE | 2017-08-21 21:32 | Cardiology Progress Note ---
Assessment/Plan Assessment/Plan 1. Atypical chest pain, characteristics not suggestive of ischemic pain, in view of CAD risk factors including DM, will do a regular treadmill stress test. AMI is ruled out. 2. DM, should continue ASA and statins. 3. Hyperlipidemia, goal of LDL <100 mg%. 4. HTN, well controlled. continue ACEI. Subjective Subjective Sinus rhythm at 75. Complains about generalized body pain including chest pain. Objective Last 24 Hour Vital Signs Date Time Temp Pulse Resp B/P (MAP) Pulse Ox O2 Delivery O2 Flow Rate FiO2 08/21/17 20:51 97.2 75 16 127/67 97 Room Air 08/21/17 19:53 71 18 Room Air 08/21/17 16:00 97.5 72 20 132/76 97 Room Air 08/21/17 16:00 64 08/21/17 12:00 68 08/21/17 12:00 97.6 72 20 124/64 99 Room Air 08/21/17 09:44 72 18 Room Air 08/21/17 08:35 137/75 08/21/17 08:00 97.2 70 21 137/75 98 Room Air 08/21/17 04:00 73 08/21/17 00:00 70 08/21/17 00:00 97.3 71 16 150/79 97 Room Air Intake and Output 08/21/17 08/22/17 19:00 07:00 Intake Total 600 ml Balance 600 ml Intake Oral 600 ml # Voids 2 2D Echo: LVEF 55%, Mod LVH, Grade I LVDD, Mild MR, RVSP 25 mmHg Laboratory Tests Test 08/21/17 07:20 White Blood Count 8.0 K/UL (4.8-10.8) Red Blood Count 4.27 M/UL (4.20-5.40) Hemoglobin 13.7 G/DL (12.0-16.0) Hematocrit 39.5 % (37.0-47.0) Mean Corpuscular Volume 93 FL (80-99) Mean Corpuscular Hemoglobin 32.0 PG (27.0-31.0) H Mean Corpuscular Hemoglobin Concent 34.6 G/DL (32.0-36.0) Red Cell Distribution Width 12.3 % (11.6-14.8) Platelet Count 232 K/UL (150-450) Mean Platelet Volume 6.6 FL (6.5-10.1) Neutrophils (%) (Auto) 53.9 % (45.0-75.0) Lymphocytes (%) (Auto) 32.0 % (20.0-45.0) Monocytes (%) (Auto) 8.8 % (1.0-10.0) Eosinophils (%) (Auto) 4.0 % (0.0-3.0) H Basophils (%) (Auto) 1.3 % (0.0-2.0) Prothrombin Time 10.4 SEC (9.30-11.50) Prothromb Time International Ratio 1.0 (0.9-1.1) Activated Partial Thromboplast Time 27 SEC (23-33) Sodium Level 145 MMOL/L (136-145) Potassium Level 3.5 MMOL/L (3.5-5.1) Chloride Level 109 MMOL/L (98-107) H Carbon Dioxide Level 27 MMOL/L (21-32) Anion Gap 9 mmol/L (5-15) Blood Urea Nitrogen 10 mg/dL (7-18) Creatinine 0.6 MG/DL (0.55-1.30) Estimat Glomerular Filtration Rate > 60 mL/min (>60) Glucose Level 118 MG/DL (74-106) H Calcium Level 8.8 MG/DL (8.5-10.1) Troponin I 0.005 ng/mL (0.000-0.056) C-Reactive Protein, Quantitative < 0.4 mg/dL (0.00-0.90) Triglycerides Level 187 MG/DL (0-200) Cholesterol Level 222 MG/DL (< 200) H LDL Cholesterol 160 mg/dL (<100) H HDL Cholesterol 44 MG/DL (40-60) Cholesterol/HDL Ratio 5.0 (3.3-4.4) H Thyroid Stimulating Hormone (TSH) 1.859 uiU/mL (0.360-3.740) Objective HEENT: normocephalic, atraumatic, bilateral eye normal inspection, bilateral eye PERRL Neck: No JVD, no carotid bruit with upstroke 2+ B/L Respiratory: chest non-tender, lungs clear Cardiovascular: regular rate, rhythm, normal S1S2, no murmurs, gallops or rubs. Gastrointestinal: normal bowel sounds, non tender, soft, non-distended, no guarding, no rebound Genitourinary: normal inspection, no CVA tenderness Musculoskeletal: no edema, clubbing or cyanosis. HAYES JUNE Aug 21, 2017 21:32
[2017-08-22] VITALS: BP 150/72
[2017-08-22] MEDS: Cefepime HCl 2 GM in D5W 110 ML IVPB SCH (01:20)
[2017-08-22] MEDS: Morphine Sulfate 2mg/ml Inj IVP PRN ×2 (01:32→17:56)
[2017-08-22 04:58] VITALS: BP 122/62
[2017-08-22] MEDS: Heparin 5000 units/ml inj SUBQ SCH ×3 (06:00→21:47)
[2017-08-22] MEDS: NovoLOG Insulin Flexpen SUBQ SCH ×4 (06:30→21:46)
[2017-08-22 08:00] VITALS: BP 150/76
[2017-08-22 08:03] LABS: BASOPHILS % (AUTO) 1.2 % (0.0-2.0); EOSINOPHILS % (AUTO) 4.2 % (0.0-3.0); LYMPHOCYTES % (AUTO) 36.2 % (20.0-45.0); MEAN CORPUSCULAR HEMOGLOBIN 32.2 PG (27.0-31.0); MEAN CORPUSCULAR HGB CONC 34.7 G/DL (32.0-36.0); MEAN CORPUSCULAR VOLUME 93 FL (80-99); MONOCYTES % (AUTO) 8.8 % (1.0-10.0); NEUTROPHILS % (AUTO) 49.5 % (45.0-75.0); PLATELET COUNT 205 K/UL (150-450); RED BLOOD COUNT 4.11 M/UL (4.20-5.40); RED CELL DISTRIBUTION WIDTH 12.2 % (11.6-14.8); WHITE BLOOD COUNT 6.8 K/UL (4.8-10.8)
[2017-08-22] MEDS: Benazepril 10mg tab ORAL SCH (08:31)
[2017-08-22] MEDS: Aspirin Baby 81mg ORAL SCH (08:32)
--- NOTE | 2017-08-22 09:03 | Infectious Diseases Prog Note ---
Assessment/Plan Problems: (1) Pyuria Assessment & Plan: Rule-out UTI. Empiric cefepime. Follow-up UCx. (2) Hypertension (3) Chest pain (4) Chronic pain Subjective Allergies: Coded Allergies: CODEINE (Unverified Allergy, Unknown, 07/07/14) Pt claims that she used to be allergic to Codeine, but she is now able to take it without any side effect or adverse reaction DIPHENHYDRAMINE (Unverified Allergy, Unknown, 07/07/14) Objective Vital Signs Last 24 Hour Vital Signs Date Time Temp Pulse Resp B/P (MAP) Pulse Ox O2 Delivery O2 Flow Rate FiO2 08/22/17 08:31 122/62 08/22/17 08:00 97.3 79 20 150/76 100 Room Air 08/22/17 04:58 98.1 79 20 122/62 97 Room Air 08/22/17 04:00 72 08/22/17 00:00 96.0 64 20 150/72 99 Room Air 08/22/17 00:00 67 08/21/17 20:51 97.2 75 16 127/67 97 Room Air 08/21/17 20:00 70 08/21/17 19:53 71 18 Room Air 08/21/17 16:00 97.5 72 20 132/76 97 Room Air 08/21/17 16:00 64 08/21/17 12:00 68 08/21/17 12:00 97.6 72 20 124/64 99 Room Air 08/21/17 09:44 72 18 Room Air Height (Feet): 5 Height (Inches): 2.00 Weight (Pounds): 135 Microbiology Date/Time Source Procedure Growth Status 08/21/17 08:45 Urine,Clean Catch Urine Culture - Preliminary Resulted Laboratory Tests Test 08/22/17 06:40 White Blood Count 6.8 K/UL (4.8-10.8) Red Blood Count 4.11 M/UL (4.20-5.40) L Hemoglobin 13.3 G/DL (12.0-16.0) Hematocrit 38.2 % (37.0-47.0) Mean Corpuscular Volume 93 FL (80-99) Mean Corpuscular Hemoglobin 32.2 PG (27.0-31.0) H Mean Corpuscular Hemoglobin Concent 34.7 G/DL (32.0-36.0) Red Cell Distribution Width 12.2 % (11.6-14.8) Platelet Count 205 K/UL (150-450) Mean Platelet Volume 7.0 FL (6.5-10.1) Neutrophils (%) (Auto) 49.5 % (45.0-75.0) Lymphocytes (%) (Auto) 36.2 % (20.0-45.0) Monocytes (%) (Auto) 8.8 % (1.0-10.0) Eosinophils (%) (Auto) 4.2 % (0.0-3.0) H Basophils (%) (Auto) 1.2 % (0.0-2.0) Sodium Level Pending Potassium Level Pending Chloride Level Pending Carbon Dioxide Level Pending Blood Urea Nitrogen Pending Creatinine Pending Estimat Glomerular Filtration Rate Pending Glucose Level Pending Calcium Level Pending Troponin I 0.002 ng/mL (0.000-0.056) Current Medications Medications (Trade) Dose Ordered Sig/Joyce Route PRN Reason Start Time Stop Time Status Last Admin Dose Admin Acetaminophen (Tylenol) 650 mg Q4H PRN ORAL FEVER 08/20/17 14:45 09/19/17 14:44 08/22/17 08:40 Albuterol/ Ipratropium (DuoNeb 0.5-3(2.5)mg/3ml) 3 ml Q4H PRN HHN Shortness of Breath 08/20/17 14:45 08/25/17 14:44 Aspirin (ASA) 162 mg DAILY ORAL 08/21/17 09:00 09/20/17 08:59 08/22/17 08:32 Benazepril HCl (Lotensin) 10 mg DAILY ORAL 08/21/17 09:00 09/20/17 08:59 08/22/17 08:31 Cefepime HCl 2 gm/ Dextrose 110 ml @ 220 mls/hr Q24H IVPB 08/21/17 01:00 08/28/17 00:59 08/22/17 01:20 Dextrose (Dextrose 50%) STAT PRN IV Hypoglycemia 08/20/17 14:45 09/19/17 14:44 Diltiazem HCl (Cardizem) 10 mg Q1H PRN IV HR > 120 08/20/17 19:30 09/19/17 19:29 Enalaprilat (Vasotec) 2.5 mg Q6H PRN IV sbp more than 160 08/20/17 14:45 09/19/17 14:44 Gabapentin (Neurontin) 100 mg THREE TIMES A DAY ORAL 08/20/17 21:00 09/19/17 20:59 08/22/17 08:31 Heparin Sodium (Porcine) (Heparin 5000 units/ml) 5,000 units EVERY 8 HOURS SUBQ 08/20/17 22:00 09/19/17 21:59 Insulin Aspart (NovoLOG) BEFORE MEALS AND HS SUBQ 08/20/17 21:00 09/19/17 20:59 08/21/17 17:51 Morphine Sulfate (Morphine Sulfate) 2 mg Q4H PRN IVP severe Pain (Pain Scale 7-10) 08/20/17 14:45 08/27/17 14:44 08/22/17 01:32 Nitroglycerin (Ntg) 0.4 mg Every 5 Minutes PRN SL Prn Chest Pain 08/20/17 14:45 09/19/17 14:44 Ondansetron HCl (Zofran) 4 mg Q6H PRN IVP Nausea & Vomiting 08/20/17 14:45 09/19/17 14:44 Pantoprazole (Protonix) 40 mg DAILY ORAL 08/21/17 09:00 09/20/17 08:59 08/22/17 08:31 Polyethylene Glycol (Miralax) 17 gm DAILYPRN PRN ORAL Constipation 08/20/17 14:45 09/19/17 14:44 Temazepam (Restoril) 15 mg HSPRN PRN ORAL Insomnia 08/20/17 14:45 08/27/17 14:44 08/22/17 01:21 SINDHU ROSARIO Aug 22, 2017 09:03
[2017-08-22 10:13] LABS: ANION GAP 11 mmol/L (5-15); CALCIUM 9.2 MG/DL (8.5-10.1); CARBON DIOXIDE 25 MMOL/L (21-32); CHLORIDE 109 MMOL/L (98-107); CREATININE 0.6 MG/DL (0.55-1.30); GLOMERULAR FILTRATION RATE > 60 mL/min (>60); POTASSIUM 3.7 MMOL/L (3.5-5.1); SODIUM 145 MMOL/L (136-145)
[2017-08-22 12:00] VITALS: BP 130/67
--- NOTE | 2017-08-22 12:46 | Pulmonology Progress Note ---
Assessment/Plan Problems: (1) ACS (acute coronary syndrome) (2) COPD (chronic obstructive pulmonary disease) (3) Anxiety (4) DM (diabetes mellitus) (5) Depression (6) Scoliosis Assessment/Plan stress test in process f/u cardio recommendations pain management sliding scale symptoamtic treatment all meds and notes reviewed. Subjective ROS Limited/Unobtainable: No Constitutional: Reports: no symptoms HEENT: Repors: no symptoms Allergies: Coded Allergies: CODEINE (Unverified Allergy, Unknown, 07/07/14) Pt claims that she used to be allergic to Codeine, but she is now able to take it without any side effect or adverse reaction DIPHENHYDRAMINE (Unverified Allergy, Unknown, 07/07/14) Objective Last 24 Hour Vital Signs Date Time Temp Pulse Resp B/P (MAP) Pulse Ox O2 Delivery O2 Flow Rate FiO2 08/22/17 08:31 122/62 08/22/17 08:03 84 16 Room Air 08/22/17 08:00 97.3 79 20 150/76 100 Room Air 08/22/17 08:00 66 08/22/17 04:58 98.1 79 20 122/62 97 Room Air 08/22/17 04:00 72 08/22/17 00:00 96.0 64 20 150/72 99 Room Air 08/22/17 00:00 67 08/21/17 20:51 97.2 75 16 127/67 97 Room Air 08/21/17 20:00 70 08/21/17 19:53 71 18 Room Air 08/21/17 16:00 97.5 72 20 132/76 97 Room Air 08/21/17 16:00 64 Intake and Output 08/22/17 08/23/17 19:00 07:00 Intake Total 360 ml Balance 360 ml Intake Oral 360 ml # Voids 2 General Appearance: WD/WN HEENT: normocephalic, atraumatic, anicteric Respiratory/Chest: chest wall non-tender, lungs clear Cardiovascular: normal peripheral pulses, normal rate Abdomen: normal bowel sounds, soft, non tender Neurologic/Psychiatric: no motor/sensory deficits Microbiology Date/Time Source Procedure Growth Status 08/21/17 08:45 Urine,Clean Catch Urine Culture - Preliminary Resulted Laboratory Tests 08/22/17 06:40: White Blood Count 6.8, Red Blood Count 4.11L, Hemoglobin 13.3, Hematocrit 38.2, Mean Corpuscular Volume 93, Mean Corpuscular Hemoglobin 32.2H, Mean Corpuscular Hemoglobin Concent 34.7, Red Cell Distribution Width 12.2, Platelet Count 205, Mean Platelet Volume 7.0, Neutrophils (%) (Auto) 49.5, Lymphocytes (%) (Auto) 36.2, Monocytes (%) (Auto) 8.8, Eosinophils (%) (Auto) 4.2H, Basophils (%) (Auto ) 1.2, Sodium Level 145, Potassium Level 3.7, Chloride Level 109H, Carbon Dioxide Level 25, Anion Gap 11, Blood Urea Nitrogen 12, Creatinine 0.6, Estimat Glomerular Filtration Rate > 60, Glucose Level 100, Calcium Level 9.2, Troponin I 0.002 Current Medications Medications (Trade) Dose Ordered Sig/Joyce Route PRN Reason Start Time Stop Time Status Last Admin Dose Admin Acetaminophen (Tylenol) 650 mg Q4H PRN ORAL FEVER 08/20/17 14:45 09/19/17 14:44 08/22/17 08:40 Albuterol/ Ipratropium (DuoNeb 0.5-3(2.5)mg/3ml) 3 ml Q4H PRN HHN Shortness of Breath 08/20/17 14:45 08/25/17 14:44 Aspirin (ASA) 162 mg DAILY ORAL 08/21/17 09:00 09/20/17 08:59 08/22/17 08:32 Benazepril HCl (Lotensin) 10 mg DAILY ORAL 08/21/17 09:00 09/20/17 08:59 08/22/17 08:31 Cefepime HCl 2 gm/ Dextrose 110 ml @ 220 mls/hr Q24H IVPB 08/21/17 01:00 08/28/17 00:59 08/22/17 01:20 Dextrose (Dextrose 50%) STAT PRN IV Hypoglycemia 08/20/17 14:45 09/19/17 14:44 Diltiazem HCl (Cardizem) 10 mg Q1H PRN IV HR > 120 08/20/17 19:30 09/19/17 19:29 Enalaprilat (Vasotec) 2.5 mg Q6H PRN IV sbp more than 160 08/20/17 14:45 11/17/17 14:44 Gabapentin (Neurontin) 100 mg THREE TIMES A DAY ORAL 08/20/17 21:00 09/19/17 20:59 08/22/17 08:31 Heparin Sodium (Porcine) (Heparin 5000 units/ml) 5,000 units EVERY 8 HOURS SUBQ 08/20/17 22:00 09/19/17 21:59 Insulin Aspart (NovoLOG) BEFORE MEALS AND HS SUBQ 08/20/17 21:00 09/19/17 20:59 08/21/17 17:51 Morphine Sulfate (Morphine Sulfate) 2 mg Q4H PRN IVP severe Pain (Pain Scale 7-10) 08/20/17 14:45 08/27/17 14:44 08/22/17 01:32 Nitroglycerin (Ntg) 0.4 mg Every 5 Minutes PRN SL Prn Chest Pain 08/20/17 14:45 09/19/17 14:44 Ondansetron HCl (Zofran) 4 mg Q6H PRN IVP Nausea & Vomiting 08/20/17 14:45 09/19/17 14:44 Pantoprazole (Protonix) 40 mg DAILY ORAL 08/21/17 09:00 09/20/17 08:59 08/22/17 08:31 Polyethylene Glycol (Miralax) 17 gm DAILYPRN PRN ORAL Constipation 08/20/17 14:45 09/19/17 14:44 Temazepam (Restoril) 15 mg HSPRN PRN ORAL Insomnia 08/20/17 14:45 08/27/17 14:44 08/22/17 01:21 OSIRIS COLUNGA Aug 22, 2017 12:46
--- NOTE | 2017-08-22 13:21 | General Progress Note ---
Assessment/Plan Problem List: (1) Dyspnea ICD Codes: R06.00 - Dyspnea SNOMED: 352370388 (2) Lumbar radiculopathy ICD Codes: M54.16 - Lumbar radiculopathy SNOMED: 728560892 (3) Acute coronary syndrome ICD Codes: I24.9 - Acute coronary syndrome SNOMED: 497273885 (4) Diabetic neuropathy ICD Codes: E11.40 - Type 2 diabetes mellitus with diabetic neuropathy, unspecified SNOMED: 808404773, 578858770 (5) Chest pain ICD Codes: R07.9 - Chest pain, unspecified SNOMED: 55126955 (6) Hypertension ICD Codes: I10 - Essential (primary) hypertension SNOMED: 70366917 (7) Chronic pain ICD Codes: G89.29 - Other chronic pain SNOMED: 21850698 (8) COPD (chronic obstructive pulmonary disease) ICD Codes: J44.9 - COPD (chronic obstructive pulmonary disease) SNOMED: 94590076 (9) Depression ICD Codes: F32.9 - Major depressive disorder, single episode, unspecified SNOMED: 10909810 (10) DM (diabetes mellitus) ICD Codes: E11.9 - Diabetes mellitus SNOMED: 47210086 (11) Anxiety ICD Codes: F41.9 - Anxiety disorder, unspecified SNOMED: 53816034 Status: stable, progressing, tolerating diet Assessment/Plan ot pt diet abx cardio f/u pain control cbc bmp am dc plan snf Subjective Constitutional: Reports: weakness Allergies: Coded Allergies: CODEINE (Unverified Allergy, Unknown, 07/07/14) Pt claims that she used to be allergic to Codeine, but she is now able to take it without any side effect or adverse reaction DIPHENHYDRAMINE (Unverified Allergy, Unknown, 07/07/14) All Systems: reviewed and negative except above Subjective sleepy in bed Objective Last 24 Hour Vital Signs Date Time Temp Pulse Resp B/P (MAP) Pulse Ox O2 Delivery O2 Flow Rate FiO2 08/22/17 08:31 122/62 08/22/17 08:03 84 16 Room Air 08/22/17 08:00 97.3 79 20 150/76 100 Room Air 08/22/17 08:00 66 08/22/17 04:58 98.1 79 20 122/62 97 Room Air 08/22/17 04:00 72 08/22/17 00:00 96.0 64 20 150/72 99 Room Air 08/22/17 00:00 67 08/21/17 20:51 97.2 75 16 127/67 97 Room Air 08/21/17 20:00 70 08/21/17 19:53 71 18 Room Air 08/21/17 16:00 97.5 72 20 132/76 97 Room Air 08/21/17 16:00 64 Intake and Output 08/22/17 08/23/17 19:00 07:00 Intake Total 360 ml Balance 360 ml Intake Oral 360 ml # Voids 2 Laboratory Tests 08/22/17 06:40: White Blood Count 6.8, Red Blood Count 4.11L, Hemoglobin 13.3, Hematocrit 38.2, Mean Corpuscular Volume 93, Mean Corpuscular Hemoglobin 32.2H, Mean Corpuscular Hemoglobin Concent 34.7, Red Cell Distribution Width 12.2, Platelet Count 205, Mean Platelet Volume 7.0, Neutrophils (%) (Auto) 49.5, Lymphocytes (%) (Auto) 36.2, Monocytes (%) (Auto) 8.8, Eosinophils (%) (Auto) 4.2H, Basophils (%) (Auto ) 1.2, Sodium Level 145, Potassium Level 3.7, Chloride Level 109H, Carbon Dioxide Level 25, Anion Gap 11, Blood Urea Nitrogen 12, Creatinine 0.6, Estimat Glomerular Filtration Rate > 60, Glucose Level 100, Calcium Level 9.2, Troponin I 0.002 Height (Feet): 5 Height (Inches): 2.00 Weight (Pounds): 135 General Appearance: alert EENT: normal ENT inspection Neck: normal alignment Cardiovascular: normal peripheral pulses, normal rate, regular rhythm Respiratory/Chest: chest wall non-tender, lungs clear, normal breath sounds Abdomen: normal bowel sounds, non tender, soft Extremities: normal inspection Edema: no edema noted Arm (L), no edema noted Arm (R), no edema noted Leg (L), no edema noted Leg (R), no edema noted Pedal (L), no edema noted Pedal (R), no edema noted Generalized Neurologic: responsive, motor weakness Skin: normal pigmentation, warm/dry DONNA FLORENTINO Aug 22, 2017 13:21
[2017-08-22 16:00] VITALS: BP 121/66
--- NOTE | 2017-08-22 17:51 | Diagnostic Imaging Report ---
Indications: Chest pain Technique: Single day single isotope protocol utilized. Initially, resting images obtained using IV administration 11 millicuries 99M technetium Myoview. Subsequently, patient underwent Dobutamine stress testing. See cardiology report for details. During dobutamine infusion, IV administration 32.3 mCi 99 M technetium Myoview. SPECT and planar images obtained. SPECT images gated to 8 phases of the cardiac cycle were also obtained, and reformatted into cine images for evaluation of ejection fraction. Comparison: None Findings: The cardiology report does not described presence or absence of symptoms during dobutamine infusion. Per cardiology report, resting EKG demonstrates normal sinus rhythm and PACs. No significant ST and T wave changes were noted. PACs and PVCs are noted.. On imaging, no fixed nor reversible post stress perfusion defects are demonstrated. Normal cardiac chamber size. Calculated post stress ejection fraction is 77%. No focal wall motion abnormality. Impression: Nonischemic clinical response to pharmacologic stress, per cardiology report Nonischemic electrocardiographic response to pharmacologic stress, per cardiology report No imaging findings to suggest ischemia, at level of stress achieved. Calculated post stress ejection fraction greater than 70%
[2017-08-22 20:00] VITALS: BP 150/80
[2017-08-22] MEDS ORDERED: DOBUTamine 250mg/250ml Premix IV ONE (22:37)
--- NOTE | 2017-08-22 23:38 | Cardiology Progress Note ---
Assessment/Plan Assessment/Plan 1. Atypical chest pain, myocardial perfusion stress test was non-ischemic. 2. DM, continue ASA and atorvastatin. 3. Hyperlipidemia, goal of LDL <100 mg%. 4. HTN, well controlled. continue ACEI. Subjective Subjective Sinus rhythm at 81. s/p myocardial perfusion imaging test. Objective Last 24 Hour Vital Signs Date Time Temp Pulse Resp B/P (MAP) Pulse Ox O2 Delivery O2 Flow Rate FiO2 08/22/17 20:00 96.6 77 19 150/80 97 Room Air 08/22/17 19:15 68 18 Room Air 08/22/17 16:00 77 08/22/17 16:00 98.2 81 18 121/66 97 Room Air 08/22/17 12:00 97.2 83 17 130/67 99 Room Air 08/22/17 12:00 66 08/22/17 08:31 122/62 08/22/17 08:03 84 16 Room Air 08/22/17 08:00 97.3 79 20 150/76 100 Room Air 08/22/17 08:00 66 08/22/17 04:58 98.1 79 20 122/62 97 Room Air 08/22/17 04:00 72 08/22/17 00:00 96.0 64 20 150/72 99 Room Air 08/22/17 00:00 67 Intake and Output 08/22/17 08/23/17 19:00 07:00 Intake Total 810 ml Balance 810 ml Intake Oral 810 ml # Voids 4 2D Echo: LVEF 55%, Mod LVH, Grade I LVDD, Mild MR, RVSP 25 mmHg Laboratory Tests Test 08/22/17 06:40 White Blood Count 6.8 K/UL (4.8-10.8) Red Blood Count 4.11 M/UL (4.20-5.40) L Hemoglobin 13.3 G/DL (12.0-16.0) Hematocrit 38.2 % (37.0-47.0) Mean Corpuscular Volume 93 FL (80-99) Mean Corpuscular Hemoglobin 32.2 PG (27.0-31.0) H Mean Corpuscular Hemoglobin Concent 34.7 G/DL (32.0-36.0) Red Cell Distribution Width 12.2 % (11.6-14.8) Platelet Count 205 K/UL (150-450) Mean Platelet Volume 7.0 FL (6.5-10.1) Neutrophils (%) (Auto) 49.5 % (45.0-75.0) Lymphocytes (%) (Auto) 36.2 % (20.0-45.0) Monocytes (%) (Auto) 8.8 % (1.0-10.0) Eosinophils (%) (Auto) 4.2 % (0.0-3.0) H Basophils (%) (Auto) 1.2 % (0.0-2.0) Sodium Level 145 MMOL/L (136-145) Potassium Level 3.7 MMOL/L (3.5-5.1) Chloride Level 109 MMOL/L (98-107) H Carbon Dioxide Level 25 MMOL/L (21-32) Anion Gap 11 mmol/L (5-15) Blood Urea Nitrogen 12 mg/dL (7-18) Creatinine 0.6 MG/DL (0.55-1.30) Estimat Glomerular Filtration Rate > 60 mL/min (>60) Glucose Level 100 MG/DL (74-106) Calcium Level 9.2 MG/DL (8.5-10.1) Troponin I 0.002 ng/mL (0.000-0.056) Microbiology Date/Time Source Procedure Growth Status 08/21/17 08:45 Urine,Clean Catch Urine Culture - Preliminary Resulted Objective HEENT: normocephalic, atraumatic, bilateral eye normal inspection, bilateral eye PERRL Neck: No JVD, no carotid bruit with upstroke 2+ B/L Respiratory: chest non-tender, lungs clear Cardiovascular: regular rate, rhythm, normal S1S2, no murmurs, gallops or rubs. Gastrointestinal: normal bowel sounds, non tender, soft, non-distended, no guarding, no rebound Genitourinary: normal inspection, no CVA tenderness Musculoskeletal: no edema, clubbing or cyanosis. HAYES JUNE Aug 22, 2017 23:38
[2017-08-23] VITALS: BP 125/74
[2017-08-23] MEDS: Cefepime HCl 2 GM in D5W 110 ML IVPB SCH (01:30)
[2017-08-23 04:00] VITALS: BP 140/84
[2017-08-23] MEDS: Morphine Sulfate 2mg/ml Inj IVP PRN ×4 (04:17→17:02)
[2017-08-23 05:31] LABS: BASOPHILS % (AUTO) 1.1 % (0.0-2.0); LYMPHOCYTES % (AUTO) 32.9 % (20.0-45.0); MEAN CORPUSCULAR HGB CONC 34.7 G/DL (32.0-36.0); MEAN CORPUSCULAR VOLUME 92 FL (80-99); MEAN PLATELET VOLUME 7.2 FL (6.5-10.1); MONOCYTES % (AUTO) 8.5 % (1.0-10.0); NEUTROPHILS % (AUTO) 53.5 % (45.0-75.0); PLATELET COUNT 223 K/UL (150-450); RED BLOOD COUNT 4.27 M/UL (4.20-5.40); RED CELL DISTRIBUTION WIDTH 12.3 % (11.6-14.8)
[2017-08-23 05:46] LABS: ANION GAP 8 mmol/L (5-15); CALCIUM 9.1 MG/DL (8.5-10.1); CARBON DIOXIDE 27 MMOL/L (21-32); CHLORIDE 107 MMOL/L (98-107); CREATININE 0.7 MG/DL (0.55-1.30); GLOMERULAR FILTRATION RATE > 60 mL/min (>60); SODIUM 142 MMOL/L (136-145)
[2017-08-23] MEDS: Heparin 5000 units/ml inj SUBQ SCH ×2 (06:00→13:05)
[2017-08-23] MEDS: NovoLOG Insulin Flexpen SUBQ SCH ×3 (06:30→17:12)
[2017-08-23 08:06] VITALS: BP 122/66
[2017-08-23] MEDS: Benazepril 10mg tab ORAL SCH (08:47)
[2017-08-23] MEDS: Aspirin Baby 81mg ORAL SCH (08:52)
--- NOTE | 2017-08-23 11:32 | General Progress Note ---
Assessment/Plan Problem List: (1) Dyspnea ICD Codes: R06.00 - Dyspnea SNOMED: 533413443 (2) Lumbar radiculopathy ICD Codes: M54.16 - Lumbar radiculopathy SNOMED: 248874740 (3) Acute coronary syndrome ICD Codes: I24.9 - Acute coronary syndrome SNOMED: 017606116 (4) Diabetic neuropathy ICD Codes: E11.40 - Type 2 diabetes mellitus with diabetic neuropathy, unspecified SNOMED: 716123300, 650302486 (5) Chest pain ICD Codes: R07.9 - Chest pain, unspecified SNOMED: 99942757 (6) Hypertension ICD Codes: I10 - Essential (primary) hypertension SNOMED: 66018259 (7) Chronic pain ICD Codes: G89.29 - Other chronic pain SNOMED: 62352627 (8) COPD (chronic obstructive pulmonary disease) ICD Codes: J44.9 - COPD (chronic obstructive pulmonary disease) SNOMED: 10207136 (9) Depression ICD Codes: F32.9 - Major depressive disorder, single episode, unspecified SNOMED: 99625936 (10) DM (diabetes mellitus) ICD Codes: E11.9 - Diabetes mellitus SNOMED: 77801983 (11) Anxiety ICD Codes: F41.9 - Anxiety disorder, unspecified SNOMED: 90249781 Status: stable, progressing, tolerating diet Assessment/Plan ot pt diet abx cardio f/u pain control dc to snf Subjective Constitutional: Reports: weakness Allergies: Coded Allergies: CODEINE (Unverified Allergy, Unknown, 07/07/14) Pt claims that she used to be allergic to Codeine, but she is now able to take it without any side effect or adverse reaction DIPHENHYDRAMINE (Unverified Allergy, Unknown, 07/07/14) All Systems: reviewed and negative except above Subjective sleepy in bed Objective Last 24 Hour Vital Signs Date Time Temp Pulse Resp B/P (MAP) Pulse Ox O2 Delivery O2 Flow Rate FiO2 08/23/17 09:20 97.5 08/23/17 08:47 122/66 08/23/17 08:06 97.5 75 20 122/66 99 Room Air 08/23/17 08:00 69 08/23/17 07:55 72 18 Room Air 08/23/17 04:00 65 08/23/17 04:00 96.3 74 20 140/84 94 Room Air 08/23/17 00:00 97.7 68 18 125/74 97 08/23/17 00:00 69 08/22/17 20:00 79 08/22/17 20:00 96.6 77 19 150/80 97 Room Air 08/22/17 19:15 68 18 Room Air 08/22/17 16:00 77 08/22/17 16:00 98.2 81 18 121/66 97 Room Air 08/22/17 12:00 97.2 83 17 130/67 99 Room Air 08/22/17 12:00 66 Intake and Output 08/23/17 08/24/17 19:00 07:00 Intake Total 240 ml Balance 240 ml Intake Oral 240 ml Laboratory Tests 08/23/17 04:25: White Blood Count 7.0, Red Blood Count 4.27, Hemoglobin 13.7, Hematocrit 39.4, Mean Corpuscular Volume 92, Mean Corpuscular Hemoglobin 32.0H, Mean Corpuscular Hemoglobin Concent 34.7, Red Cell Distribution Width 12.3, Platelet Count 223, Mean Platelet Volume 7.2, Neutrophils (%) (Auto) 53.5, Lymphocytes (%) (Auto) 32.9, Monocytes (%) (Auto) 8.5, Eosinophils (%) (Auto) 4.0H, Basophils (%) (Auto ) 1.1, Sodium Level 142, Potassium Level 4.0, Chloride Level 107, Carbon Dioxide Level 27, Anion Gap 8, Blood Urea Nitrogen 14, Creatinine 0.7, Estimat Glomerular Filtration Rate > 60, Glucose Level 107H, Calcium Level 9.1 Height (Feet): 5 Height (Inches): 2.00 Weight (Pounds): 135 General Appearance: alert EENT: normal ENT inspection Neck: non-tender, normal alignment, supple Cardiovascular: normal peripheral pulses, normal rate, regular rhythm Respiratory/Chest: chest wall non-tender, lungs clear, normal breath sounds Abdomen: normal bowel sounds, non tender, soft Extremities: normal inspection Edema: no edema noted Arm (L), no edema noted Arm (R), no edema noted Leg (L), no edema noted Leg (R), no edema noted Pedal (L), no edema noted Pedal (R), no edema noted Generalized Neurologic: responsive, motor weakness Skin: normal pigmentation, warm/dry DONNA FLORENTINO Aug 23, 2017 11:32
[2017-08-23 12:00] VITALS: BP 113/71
[2017-08-23 16:00] VITALS: BP 116/64
--- NOTE | 2017-08-23 16:02 | Pulmonology Progress Note ---
Assessment/Plan Problems: (1) ACS (acute coronary syndrome) (2) COPD (chronic obstructive pulmonary disease) (3) Anxiety (4) DM (diabetes mellitus) (5) Depression (6) Scoliosis Assessment/Plan stress test wa negavit Atypical chest pain, myocardial perfusion stress test was non-ischemic f/u cardio recommendations pain management sliding scale symptoamtic treatment all meds and notes reviewed dc home Subjective ROS Limited/Unobtainable: No Constitutional: Reports: no symptoms HEENT: Repors: no symptoms Respiratory: Reports: no symptoms Allergies: Coded Allergies: CODEINE (Unverified Allergy, Unknown, 07/07/14) Pt claims that she used to be allergic to Codeine, but she is now able to take it without any side effect or adverse reaction DIPHENHYDRAMINE (Unverified Allergy, Unknown, 07/07/14) Objective Last 24 Hour Vital Signs Date Time Temp Pulse Resp B/P (MAP) Pulse Ox O2 Delivery O2 Flow Rate FiO2 08/23/17 13:20 97.5 08/23/17 12:00 71 08/23/17 12:00 98.0 72 18 113/71 100 Room Air 08/23/17 08:47 122/66 08/23/17 08:06 97.5 75 20 122/66 99 Room Air 08/23/17 08:00 69 08/23/17 07:55 72 18 Room Air 08/23/17 04:00 65 08/23/17 04:00 96.3 74 20 140/84 94 Room Air 08/23/17 00:00 97.7 68 18 125/74 97 08/23/17 00:00 69 08/22/17 20:00 79 08/22/17 20:00 96.6 77 19 150/80 97 Room Air 08/22/17 19:15 68 18 Room Air Intake and Output 08/23/17 08/24/17 19:00 07:00 Intake Total 480 ml Balance 480 ml Intake Oral 480 ml General Appearance: WD/WN, no acute distress HEENT: atraumatic Respiratory/Chest: chest wall non-tender, lungs clear Cardiovascular: normal peripheral pulses, normal rate Abdomen: normal bowel sounds, no organomegaly Extremities: no cyanosis, no clubbing Neurologic/Psychiatric: quill reamer II-XII grossly normal Microbiology Date/Time Source Procedure Growth Status 08/21/17 08:45 Urine,Clean Catch Urine Culture - Final Mixed Gram Positive Organism Complete Laboratory Tests 08/23/17 04:25: White Blood Count 7.0, Red Blood Count 4.27, Hemoglobin 13.7, Hematocrit 39.4, Mean Corpuscular Volume 92, Mean Corpuscular Hemoglobin 32.0H, Mean Corpuscular Hemoglobin Concent 34.7, Red Cell Distribution Width 12.3, Platelet Count 223, Mean Platelet Volume 7.2, Neutrophils (%) (Auto) 53.5, Lymphocytes (%) (Auto) 32.9, Monocytes (%) (Auto) 8.5, Eosinophils (%) (Auto) 4.0H, Basophils (%) (Auto ) 1.1, Sodium Level 142, Potassium Level 4.0, Chloride Level 107, Carbon Dioxide Level 27, Anion Gap 8, Blood Urea Nitrogen 14, Creatinine 0.7, Estimat Glomerular Filtration Rate > 60, Glucose Level 107H, Calcium Level 9.1 Current Medications Medications (Trade) Dose Ordered Sig/Joyce Route PRN Reason Start Time Stop Time Status Last Admin Dose Admin Acetaminophen (Tylenol) 650 mg Q4H PRN ORAL FEVER 08/20/17 14:45 09/19/17 14:44 08/22/17 08:40 Albuterol/ Ipratropium (DuoNeb 0.5-3(2.5)mg/3ml) 3 ml Q4H PRN HHN Shortness of Breath 08/20/17 14:45 08/25/17 14:44 Aspirin (ASA) 162 mg DAILY ORAL 08/21/17 09:00 09/20/17 08:59 08/23/17 08:52 Atorvastatin Calcium (Lipitor) 20 mg BEDTIME ORAL 08/23/17 21:00 09/22/17 20:59 Benazepril HCl (Lotensin) 10 mg DAILY ORAL 08/21/17 09:00 09/20/17 08:59 08/23/17 08:47 Cefepime HCl 2 gm/ Dextrose 110 ml @ 220 mls/hr Q24H IVPB 08/21/17 01:00 08/28/17 00:59 08/23/17 01:30 Dextrose (Dextrose 50%) STAT PRN IV Hypoglycemia 08/20/17 14:45 09/19/17 14:44 Diltiazem HCl (Cardizem) 10 mg Q1H PRN IV HR > 120 08/20/17 19:30 09/19/17 19:29 Enalaprilat (Vasotec) 2.5 mg Q6H PRN IV sbp more than 160 08/20/17 14:45 09/19/17 14:44 Gabapentin (Neurontin) 100 mg THREE TIMES A DAY ORAL 08/20/17 21:00 09/19/17 20:59 08/23/17 12:14 Heparin Sodium (Porcine) (Heparin 5000 units/ml) 5,000 units EVERY 8 HOURS SUBQ 08/20/17 22:00 09/19/17 21:59 Insulin Aspart (NovoLOG) BEFORE MEALS AND HS SUBQ 08/20/17 21:00 09/19/17 20:59 08/23/17 12:18 Morphine Sulfate (Morphine Sulfate) 2 mg Q4H PRN IVP severe Pain (Pain Scale 7-10) 08/20/17 14:45 08/27/17 14:44 08/23/17 12:52 Nitroglycerin (Ntg) 0.4 mg Every 5 Minutes PRN SL Prn Chest Pain 08/20/17 14:45 09/19/17 14:44 Ondansetron HCl (Zofran) 4 mg Q6H PRN IVP Nausea & Vomiting 08/20/17 14:45 09/19/17 14:44 Pantoprazole (Protonix) 40 mg DAILY ORAL 08/21/17 09:00 09/20/17 08:59 08/23/17 08:52 Polyethylene Glycol (Miralax) 17 gm DAILYPRN PRN ORAL Constipation 08/20/17 14:45 09/19/17 14:44 Temazepam (Restoril) 15 mg HSPRN PRN ORAL Insomnia 08/20/17 14:45 08/27/17 14:44 08/22/17 21:52 OSIRIS COLUNGA Aug 23, 2017 16:02
[2017-08-23] MEDS ORDERED: Tubing IV Secondary IV ONE (18:48)
[2017-08-23] MEDS ORDERED: NS 275ml ONE (18:48)
[2017-08-23] MEDS ORDERED: Atorvastatin 20mg tab ORAL SCH (21:00)
--- NOTE | 2017-08-24 09:49 | Diagnostic Imaging Report ---
APPROVED REPORT CPT Code: 49766 Present Symptoms Lower Extremity Pain: Bilateral BILATERAL: Imaging reveals a patent deep venous system bilaterally. There is no evidence of thrombus within the femoral, popliteal or tibial segments. The greater saphenous veins are also within normal limits. Doppler indicates normal spontaneous flow within these segments.
--- NOTE | 2017-08-25 10:31 | Consultation ---
DATE OF CONSULTATION: 08/22/2017 PSYCHOTHERAPY CONSULTATION PROGRESS NOTE CONSULTING PHYSICIAN: Vanda Yao M.D. TREATING ATTENDING PHYSICIAN: Rob Saldana D.O. HISTORY OF PRESENT ILLNESS: This is a 67-year-old female patient admitted to the hospital for chest pain. She has been feeling dizzy, short of breath. The patient lives independently. She is very anxious, has a history of anxiety and depression psychotherapeutic services. This clinician assessed the patient. The patient denies any suicidal or homicidal thoughts of ideation. Denies any auditory or visual hallucinations. The patient has history of became very anxious and depressed. The patient states that her daughter had 2 years ago by the daughter and did causing her anxiety and depression. The patient has been very cooperative and has also communicated with clinician. PAST MEDICAL HISTORY: Includes a history of hypertension, diabetes, COPD, and neuropathy. ALLERGIES: The patient has allergies to codeine and diphenylamine. SUBSTANCE ABUSE HISTORY: There is no indication of alcohol use or illicit substance use. The patient does have a history of smoking cigarettes. PSYCHIATRIC HISTORY: The patient has a history of anxiety and depression. The patient states that she been treated with psychotropic medications in the past. SOCIAL HISTORY: The patient states that she lives independently. She is a 67-year-old female patient. . MENTAL STATUS EXAMINATION: The patient is alert and oriented x3, person, place, and time. Mood is anxious. Affect is congruent. Thought process is disorganized. Thought content is linear. The patient has poor attention and concentration. DIAGNOSES: [place] I Generalized anxiety disorder and major depressive disorder without psychotic features. [place] II Deferred. [place] III Per History and Physical. PLAN: This clinician has assessed the patient's mental status and provided the patient with reality orientation and supportive psychotherapy. The patient . Continue with medication management and behavioral management. This clinician has reviewed the patient's chart and discussed the treatment with nursing staff. Vanda Yao PsyD. : ANDRIY JOB#: [id number] CC:
--- NOTE | 2017-08-25 10:31 | Consultation ---
DATE OF CONSULTATION: HISTORY: The patient is a 67-year-old . Claudia Rodriguez M.D. DR: DIMPLE JOB#: [id number] CC:
--- NOTE | 2017-08-25 12:16 | Cardiology Report ---
APPROVED REPORT EKG Measurement Heart [id number] Sinus rhythm with marked sinus arrhythmia Possible Left atrial enlargement Anterior infarct, age undetermined Abnormal ECG
--- NOTE | 2017-08-25 13:58 | Cardiology Report ---
APPROVED REPORT EXAM: Two-dimensional and M-mode echocardiogram with Doppler and color Doppler. INDICATION LV function M-Mode DIMENSIONS IVSd1.8 (0.7-1.1cm)Left Atrium (MM)3.4 (1.6-4.0cm) LVDd4.2 (3.5-5.6cm)Aortic Root3.0 (2.0-3.7cm) PWd1.1 (0.7-1.1cm)Aortic Cusp Exc.1.8 (1.5-2.0cm) LVDs3.0 (2.5-4.0cm) PWs2.0 cm Normal left ventricular chamber size, systolic function and wall motion to extent visualized. Left ventricular ejection fraction estimated to be 55-60 %. Moderate left ventricular hypertrophy. Anterior Echo-free space, may be due to pericardial fat or effusion. All other cardiac chamber sizes are within normal limits. Focal aortic valve sclerosis with adequate cusp excursion. Thickened mitral valve leaflets with normal excursion. Mitral annulus and aortic root calcification. Pulmonic valve not well visualized. Normal tricuspid valve structure. IVC at normal size and collapsing with respiration. A color flow and spectral Doppler study was performed and revealed: Mild mitral regurgitation. diastolic dysfunction. Trace tricuspid regurgitation. Tricuspid systolic velocities suggests peak right ventricular systolic pressure of 25 mmHg.
--- NOTE | 2017-08-25 15:09 | Discharge Summary ---
Discharge Summary Hospital Course Date of Admission Aug 20, 2017 at 16:55 Date of Discharge Aug 23, 2017 at 18:49 Admitting Diagnosis CHEST PAIN HPI Missy Malhotra is a 67 year old female who was admitted on Aug 20, 2017 at 16:55 for Chest Pain/ Hospital Course dc summary #[id number] Discharge Condition Upon Discharge: stable Discharge Disposition Patient was discharged to SNF/Subacute Facility(03) Discharge Diagnoses: Discharge Instructions Discharge Instructions Special Instructions I have been assigned to complete a D/C Summary on this account. I was not involved in the patient management Naila Mishra NP ([place]te[place]) Aug 25, 2017 15:09
--- NOTE | 2017-08-26 13:15 | Discharge Summary 2 SIG ---
DATE OF ADMISSION: 08/20/2017 DATE OF DISCHARGE: 08/23/2017 REASON FOR ADMISSION: 67-year-old female with a past medical history significant for hypertension, COPD/asthma, diabetes, hyperlipidemia, scoliosis, and depression presented to emergency department complaining of chest pain, generalized body aches and generalized weakness. Workup in the emergency room was essentially negative. Troponin was negative. No leukocytosis. No fever. Chest x-ray with no acute cardiopulmonary issue. EKG revealed normal sinus rhythm. No acute ischemic changes. Troponin negative. The patient was admitted for further workup for chest pain. HOSPITAL STAY: The patient was admitted to telemetry floor. Cardiology consult was requested. Serial troponin were negative. Echocardiogram revealed preserved ejection fraction of 55% to 60%, right ventricular systolic pressure of 25, moderate left ventricular hypertrophy, and mild mitral regurgitation. Subsequently, stress test was done as per cardiology recommendations, which was nonischemic, with calculated ejection fraction greater than 70%. Per Cardiology, chest pain was atypical. Lipid panel revealed elevated LDL-160. The patient was placed on statin. Continue aspirin. The patient was educated on low-fat and low-cholesterol diet. Repeat lipid panel in 3 months, goal to keep LDL below 100. Blood pressure was managed with SARATH inhibitor and was stable. Blood sugar was managed with sliding scale of insulin and was stable. Supplemental oxygen was provided as needed to keep saturation above 92%. Pulse oximetry was stable on room air. Pulmonary toilet was ordered on as needed basis. No evidence of COPD/asthma exacerbation. Psychiatrist had seen and evaluated the patient for depression disorder and optimized her psychiatric medication regimen. Pain management was provided due to the history of scoliosis. ID followed the patient. The patient had no leukocytosis. Initial urinalysis revealed +1 leukocyte esterase. The patient was placed on empiric antibiotic for possible UTI, however, urine culture revealed mixed gram-positive organism, colony count less than 10,000. Antibiotic was discontinued. The patient was stable for discharge to [facility]. FINAL DIAGNOSES: 1. Atypical chest pain. 2. Hypertension. 3. Hyperlipidemia. 4. Diabetes. 5. Chronic obstructive pulmonary disease/asthma. 6. Depression. 7. Scoliosis. DISCHARGE MEDICATIONS: List of medication was sent to accepting facility. DISCHARGE INSTRUCTIONS: The patient was discharged to [facility]. FOLLOWUP: Follow up with medical doctor at the facility. Rob Saldana D.O. I have been assigned to dictate discharge summary on this account and I was not involved in the patient's management. Naila Mishra N.P. ([place]te[place]) DR: CHRISTINE JOB#: [id number] CC: KASEY
== END 2017-08-23 18:49 | DRG 313 ==
LOC: EDUNIT# 13:01 → EDBD 13:01 → EMR 13:45 → 2E 16:55 → EDBEDREQ 19:04
DX: R07.89 Other chest pain (principal); E11.40 Type 2 diabetes mellitus with diabetic neuropathy, unspecified; J44.9 Chronic obstructive pulmonary disease, unspecified; N39.0 Urinary tract infection, site not specified; M41.9 Scoliosis, unspecified; F32.9 Major depressive disorder, single episode, unspecified; I10 Essential (primary) hypertension; M54.16 Radiculopathy, lumbar region; E78.5 Hyperlipidemia, unspecified; Z88.6 Allergy status to analgesic agent; Z88.8 Allergy status to other drugs, medicaments and biological substances; Z79.4 Long term (current) use of insulin; Z87.891 Personal history of nicotine dependence; F41.1 Generalized anxiety disorder; G89.29 Other chronic pain
CPT/HCPCS: 36415; 71010; 78452; 80048; 80053; 80061; 80306; 81003; 82550; 82553; 82962; 83690; 84443; 84484; 85025; 85610; 85730; 86140; 87086; 93005; 93017; 93306; 93970; 94664; 99285; J1815